=== PATIENT | female | born 1955 | race Caucasian/White ===

== ENCOUNTER → 2017-07-23 | Outpatient (CLI) | payer BC ==
--- NOTE | 2017-07-23 16:48 | WOMENS IMAGING REPORT ---
EXAM DESCRIPTION: BILAT SCREENING MAMMO W/CAD COMPLETED DATE/TIME: 07/23/2017 2:36 pm REASON FOR STUDY: ROUTINE SCREENING; Z12.31 Z12.31 ENCNTR SCREEN MAMMOGRAM FOR MALIGNANT NEOPLASM O F MILLY COMPARISON: September 2010 TECHNIQUE: Standard craniocaudal and mediolateral oblique views of each breast recorded using digita l acquisition. LIMITATIONS: None. FINDINGS: No masses, calcifications or architectural distortion. No areas of suspicion. Read with the assistance of CAD. .[facility] - R2 Cenova Version 1.3 .[facility] - R2 Cenova Version 1.3 .[facility] - R2 Cenova Version 2.4 .[facility] - R2 Cenova Version 2.4 .[facility] - R2 Electric Organ Checker Version 9.2 IMPRESSION: NORMAL MAMMOGRAM. BIRADS 1. BREAST DENSITY: c. The breasts are heterogeneously dense, which may obscure small masses. BIRAD: 1 NEGATIVE RECOMMENDATION: ROUTINE SCREENING COMMENT: The patient has been notified of the results by letter per SA requirements. Additional no tification policies are in place for contacting patient with suspicious or incomplete findings. Quality ID #[id number]: The [employer] recommends an annual screening mammogram for women aged 40 years or over. This facility utilizes a reminder system to ensure that all patients receive reminder letters, and/or direct phone calls for appointments. This includes reminders for routine scr eening mammograms, diagnostic mammograms, or other Breast Imaging Interventions when appropriate. Th is patient will be placed in the appropriate reminder system. The [employer] (ACR) has developed recommendations for screening MRI of the breast s in certain patient populations, to be used in conjunction with mammography. Breast MRI surveillanc e may be appropriate for women with more than 20% lifetime risk of developing breast cancer as deter mined by genetic testing, significant family history of the disease, or history of mantle radiation f or Hodgkins Disease. ACR Practice Guidelines 2008. TECHNICAL DOCUMENTATION: FINDING NUMBER: (1) ASSESSMENT: (1) JOB ID: [id number] [employer]- All Rights Reserved
== END ==
LOC: WI 13:00
PROVIDERS: ATTEND Physician Assistant
DX: Z12.31 Encounter for screening mammogram for malignant neoplasm of breast (principal)
CPT/HCPCS: 77067; G0202

== ENCOUNTER 2020-04-12 13:12 | Inpatient (IN) | payer SELFPAY ==
[2020-04-12 13:44] LABS: HEMOGLOBIN 18.5 g/dL (12.0-15.5); MEAN CORPUSCULAR HEMOGLOBIN 28.3 pg (27.0-33.4); MEAN CORPUSCULAR HGB CONC 31.9 g/dL (32.0-36.0); MEAN CORPUSCULAR VOLUME 89 fl (80-97); PLATELET COUNT 206 10^3/uL (150-450); RED BLOOD COUNT 6.55 10^6/uL (3.72-5.28); RED CELL DISTRIBUTION WIDTH 16.2 % (11.5-14.0); WHITE BLOOD COUNT 10.4 10^3/uL (4.0-10.5)
[2020-04-12 13:53] LABS: HEMATOCRIT 58.2 % (36.0-47.0)
[2020-04-12 14:03] LABS: ALBUMIN 4.4 g/dL (3.5-5.0); ALKALINE PHOSPHATASE 76 U/L (38-126); ANION GAP 10 (5-19); ASPARTATE AMINO TRANSFERASE 28 U/L (14-36); BILIRUBIN,TOTAL 0.8 mg/dL (0.2-1.3); BLOOD UREA NITROGEN 12 mg/dL (7-20); CALCIUM 8.9 mg/dL (8.4-10.2); CARBON DIOXIDE 35 mmol/L (22-30); CHLORIDE 88 mmol/L (98-107); GLUCOSE 205 mg/dL (75-110); POTASSIUM 4.4 mmol/L (3.6-5.0); TOTAL PROTEIN 7.6 g/dL (6.3-8.2)
[2020-04-12 14:14] LABS: ABSOLUTE LYMPHOCYTES# (MANUAL) 1.6 10^3/uL (0.5-4.7); BAND NEUTROPHILS % (MANUAL) 1 % (3-5); BASOPHILS % (MANUAL) 0 % (0-2); EOSINOPHILS % (MANUAL) 0 % (0-6); LYMPHOCYTES % (MANUAL) 15 % (13-45); MONOCYTES % (MANUAL) 10 % (3-13); PLATELET COMMENT ADEQUATE; SEGMENTED NEUTROPHILS % (MAN) 74 % (42-78); TOTAL CELLS COUNTED 100
[2020-04-12 14:16] LABS: ANISOCYTOSIS 1+; POLYCHROMASIA 1+; TOXIC VACUOLATION PRESENT
[2020-04-12 14:17] LABS: TEAR DROP CELLS SLIGHT
--- NOTE | 2020-04-12 14:30 | RADIOLOGY REPORT (SQ) ---
EXAM DESCRIPTION: CHEST SINGLE VIEW IMAGES COMPLETED DATE/TIME: 04/12/2020 2:16 pm REASON FOR STUDY: sob COMPARISON: 07/29/2016 EXAM PARAMETERS: NUMBER OF VIEWS: One view. TECHNIQUE: Single frontal radiographic view of the chest acquired. RADIATION DOSE: NA LIMITATIONS: None. FINDINGS: LUNGS AND PLEURA: No opacities, masses or pneumothorax. No pleural effusion. MEDIASTINUM AND HILAR STRUCTURES: No masses. Contour normal. HEART AND VASCULAR STRUCTURES: Heart normal in size. Normal vasculature. BONES: No acute findings. HARDWARE: None in the chest. OTHER: No other significant finding. IMPRESSION: NO ACUTE RADIOGRAPHIC FINDING IN THE CHEST. TECHNICAL DOCUMENTATION: JOB ID: [id number] 2010 [employer]- All Rights Reserved Reading location - IP/workstation name: [email or web address]
[2020-04-12 14:37] LABS: PARTIAL THROMBOPLASTIN TIME 32.1 SEC (23.5-35.8)
[2020-04-12 14:39] LABS: D-DIMER 0.75 ug/mL (0.00-0.50)
[2020-04-12 14:42] LABS: INTERNATIONAL RATION (INR) 0.96; PROTHROMBIN TIME 12.7 SEC (11.4-15.4)
--- NOTE | 2020-04-12 14:47 | ER Document Report ---
ED General - General Stated Complaint: SHORTNESS OF BREATH Time Seen by Provider: 04/12/20 13:21 Primary Care Provider: FRANCA LAMBERT PA-C [Primary Care Provider] - Follow up as needed TRAVEL OUTSIDE OF THE [place] IN LAST 30 DAYS: No - HPI Notes: Chief complaint: Cough and difficulty breathing History of present illness: 64-year-old female past smoker with past history of asthma says she has been "free from any problems" for a number of years. She became ill approximately 1 week ago with a nonproductive cough and what she perceived to be cold symptoms. Over the last several days she has had some sensation of low-grade temperature although she is not taken this. She says she is coughing up scant amounts of clear sputum. She denies travel. She denies any known exposure to COVID virus. She says she is been wearing a mask when in public. She denies chest pain. She denies any alteration of her sense of taste or smell. She denies any skin rashes. Patient says she has a past history of anaphylactic reaction to albuterol and cannot use nebulizers. EMS gave her 125 mg of Solu-Medrol IV during transport. She initially had a very low oxygen saturation around 58% on room air. They placed her on a nonrebreather and she was above 95% on arrival here. She feels much better on oxygen. She says she is never used oxygen at home. - Related Data Allergies/Adverse Reactions: albuterol [Albuterol] Allergy (Verified 04/12/20 19:02) Home Medications: metformin Past Medical History - General Information source: Patient, [facility] Records - Social History Smoking Status: Former Smoker Chew tobacco use (# tins/day): No Frequency of alcohol use: Rare Drug Abuse: None Family History: Reviewed & Not Pertinent - Past Medical History Cardiac Medical History: Reports: Hx Hypertension Endocrine Medical History: Reports: Hx Diabetes Mellitus Type 2 Past Surgical History: Reports: Hx Appendectomy, Hx Section - x2, Hx Cholecystectomy, Hx Genitourinary Surgery - oophrectomy, Hx Gynecologic Surgery - oophorectomy from ectopic but doesn't remember which, Hx Tonsillectomy - Immunizations Hx Diphtheria, Pertussis, Tetanus Vaccination: Yes Review of Systems - Review of Systems Notes: Constitutional: As per HPI. HENT: Negative for sore throat. Eyes: Negative for visual changes. Cardiovascular: Negative for chest pain. Respiratory: As per HPI. Gastrointestinal: Negative for abdominal pain, vomiting or diarrhea. Genitourinary: Negative for dysuria. Musculoskeletal: Negative for back pain. Skin: Negative for rash. Neurological: Negative for headaches, focal weakness or numbness. 10 point ROS negative except as marked above and in HPI. Physical Exam - Vital signs Vitals: Temp Pulse Resp BP Pulse Ox 99.3 F 101 H 21 H 165/95 H 59 L 04/12/20 13:13 04/12/20 13:13 04/12/20 13:13 04/12/20 13:13 04/12/20 13:13 Interpretation: Hypoxic - Notes Notes: GENERAL: Female patient approximately stated age who is breathing comfortably on a nonrebreather mask. She has a deep rattling cough. SKIN: Good turgor no rashes. HEAD: Normocephalic atraumatic. EYES: PERRLA. EOMI. Conjunctivae and sclerae clear. EARS: CANALS AND TMS CLEAR. NOSE: CLEAR. MOUTH: Moist mucosa. Good dentition. No stridor or edema. No drooling. NECK: Supple. No masses or thyromegaly. No adenopathy. Carotids 2+ without bruits. No JVD. BACK: Symmetrical without tenderness. CHEST: Diffuse expiratory wheezes bilaterally and scattered rhonchi. Respirations unlabored. Breath sounds symmetrical. HEART: Regular rhythm. No murmur gallop or rub. ABDOMEN: Soft, mildly obese, nontender without masses, organomegaly or rebound. Bowel sounds normally active. No bruits. GENITALIA: Deferred. EXTREMITIES: No edema. No calf tenderness. Cap refill less than 1.5 seconds. Dorsalis pedis and posterior tibial pulses 3+ and symmetrical. NEUROLOGICAL: GCS 15. Alert and oriented x3. Fluent speech. Cranial nerves II through XII intact. Sensorimotor and cerebellar normal. Normal tone. PSYCHIATRIC: Appropriate affect. Course - Re-evaluation Re-evalutation: 04/12/20 19:31 64-year-old female with history of past cigarette smoking and COPD as well as a past history of anaphylactic reaction to albuterol presents with several days history of bronchitic symptoms progressively worsening. She was severely hypoxemic during transport here via EMS and required 100% oxygen to get her saturation up above 90%. Her x-ray shows no focal infiltrates. She reported low-grade fever at home but was afebrile here and did not have any elevation of white count. COVID swab has been collected and result remains pending. Patient received IV Solu-Medrol during transport per EMS. Initial blood gas here showed pH of 7.22 with a PCO2 above 90. Patient was placed on BiPAP. Her pH is basically unchanged and her PCO2 is still in the high 90s with a PO2 of 145. She is now 50% oxygen. She is received IV Rocephin and will also receive IV Lasix. I have consulted with midlevel provider on for the critical care unit for admission. - Vital Signs Vital signs: Temp Pulse Resp BP Pulse Ox 99.3 F 101 H 16 148/92 H 98 04/12/20 13:13 04/12/20 13:13 04/12/20 19:01 04/12/20 19:01 04/12/20 19:01 - Laboratory Result Diagrams: 04/12/20 13:25 04/12/20 13:25 Laboratory results interpreted by me: 04/12/20 04/12/20 04/12/20 13:25 13:25 14:10 RBC 6.55 H Hgb 18.5 H Hct 58.2 H MCHC 31.9 L RDW 16.2 H Band Neutrophils % 1 L D-Dimer Carbonic Acid 3.25 H ABG pH 7.22 L ABG pCO2 108.0 H* ABG pO2 189.1 H ABG HCO3 43.5 H ABG Total CO2 46.8 H ABG O2 Saturation 98.9 H Sodium 133.0 L Chloride 88 L Carbon Dioxide 35 H Creatinine 0.45 L Glucose 205 H Urine Protein Urine Blood 04/12/20 04/12/20 04/12/20 14:20 14:35 18:25 RBC Hgb Hct MCHC RDW Band Neutrophils % D-Dimer 0.75 H Carbonic Acid 2.96 H ABG pH 7.20 L* ABG pCO2 98.5 H* ABG pO2 ABG HCO3 38.0 H ABG Total CO2 41.0 H ABG O2 Saturation Sodium Chloride Carbon Dioxide Creatinine Glucose Urine Protein >=500 H Urine Blood SMALL H - Diagnostic Test Radiology reviewed: Reports reviewed - Radiologist reports no acute findings on portable chest x-ray. - EKG Interpretation by Me Additional EKG results interpreted by me: 04/12/20 14:48 Twelve-lead EKG from 1404 hrs. is reviewed contemporaneously by me showing normal sinus rhythm with a rate of 96 and a QRS axis of 222 degrees. She shows changes of left atrial abnormality and diffuse low voltage suggestive of COPD. There are no acute ST/T wave changes present. Intervals are normal. There is no old EKG for direct comparison. Indication for current study: Dyspnea. Critical Care Note - Critical Care Note Total time excluding time spent on procedures (mins): 65 - Respiratory failure with BiPAP Discharge - Discharge Clinical Impression: Acute on chronic respiratory failure, COPD exacerbation Condition: Critical Disposition: ADMITTED INPATIENT Admitting Provider: Odin (Merchandise Clerk) Unit Admitted: ICU Referrals: FRANCA LAMBERT PA-C [Primary Care Provider] - Follow up as needed
[2020-04-12 14:55] LABS: APPEARANCE,URINE SLIGHTLY-CLOUDY; BILIRUBIN,URINE NEGATIVE (NEGATIVE); COLOR,URINE AMBER; GLUCOSE, URINE NEGATIVE (NEGATIVE); KETONES,URINE NEGATIVE (NEGATIVE); LEUKOCYTE ESTERASE,URINE NEGATIVE (NEGATIVE); NITRITE,URINE NEGATIVE (NEGATIVE); PROTEIN,URINE >=500 mg/dL (NEGATIVE); URINE SPECIFIC GRAVITY 1.024; UROBILINOGEN,URINE NEGATIVE mg/dL (<2.0)
[2020-04-12 16:31] LABS: ARTERIAL BLOOD BASE EXCESS 9.1 mmol/L; ARTERIAL BLOOD H2CO3 3.25 mmol/L (1.05-1.35); ARTERIAL BLOOD HCO3 43.5 mmol/L (20-24); ARTERIAL BLOOD O2 SATURATION 98.9 % (94-98); ARTERIAL BLOOD PH 7.22 (7.35-7.45); ARTERIAL BLOOD PO2 189.1 mmHg (80-100); ARTERIAL BLOOD TOTAL CO2 46.8 mmol/L (21-25)
[2020-04-12 16:35] LABS: ARTERIAL BLOOD FIO2 12L
--- NOTE | 2020-04-12 18:27 | EKG REPORT ---
SEVERITY:- ABNORMAL ECG - SINUS RHYTHM PROBABLE LEFT ATRIAL ABNORMALITY LOW VOLTAGE WITH RIGHT AXIS DEVIATION CONSIDER ANTERIOR INFARCT : Confirmed by: Khoi Ignacio MD 12-Apr-2020 18:26:41
[2020-04-12 18:43] LABS: ARTERIAL BLOOD BASE EXCESS 4.6 mmol/L; ARTERIAL BLOOD H2CO3 2.96 mmol/L (1.05-1.35); ARTERIAL BLOOD O2 SATURATION 94.1 % (94-98); ARTERIAL BLOOD PO2 88.3 mmHg (80-100)
[2020-04-12 18:44] LABS: ARTERIAL BLOOD FIO2 50%
[2020-04-12 18:45] LABS: ARTERIAL BLOOD PCO2 98.5 mmHg (35-45)
[2020-04-12] MEDS ORDERED: CEFTRIAXONE INJ 1000 MG VIAL IV ONE (19:17)
[2020-04-12] MEDS ORDERED: IPRATROPIUM BROMIDE 0.02% NEB 0.5 MG/2.5 ML AMPUL NEB PRN (20:20)
[2020-04-12] MEDS ORDERED: GLUCAGON,HUMAN RECOMB 1 MG INJ IM PRN (20:21)
[2020-04-12] MEDS ORDERED: DEXTROSE 40% GEL 15 GM TUBE PO PRN ×2 (20:21)
[2020-04-12] MEDS ORDERED: ONDANSETRON HCL INJ/PF 4 MG/2 ML SDV IV PRN (20:21)
[2020-04-12] MEDS ORDERED: ACETAMINOPHEN 325 MG TABLET PO PRN (20:21)
[2020-04-12] MEDS ORDERED: DEXTROSE 50%-WATER 25 GM/50 ML DISP.SYRIN IV PRN ×2 (20:21)
--- NOTE | 2020-04-12 20:49 | PDOC H&P ---
History of Present Illness Admission Date/PCP: 04/12/20 19:35 FRANCA LAMBERT PA-C History of Present Illness: BIRGIT INMAN is a 64 year old female with a history of hypertension and diab etes and remote history of smoking and asthma who presents with a one-week history of cough and shortness of breath. She is not had any fevers. She is been taking Mucinex to try to make the cough more productive but has not gotten much better. She came to the ER and was found to be pretty hypoxic. She was placed first on the nasal cannula and then on nonrebreather and then on BiPAP. She was taken off BiPAP at one point but back on 4 L nasal cannula and her saturations were 88 to 91%. A blood gas was checked and while her oxygenation was fine on blood gas, she was found to have a substantially elevated PCO2, greater than 100. pH was down to 7.2. Surprisingly, she had no mental status changes. Chest x-ray was negative. She said that the last time she did an albuterol treatment was in a [employer] office and it wound up closing up her airways and she had to go to the hospital. Past Medical History Cardiac Medical History: Reports: Hypertension Endocrine Medical History: Reports: Diabetes Mellitus Type 2 Past Surgical History Past Surgical History: Reports: Appendectomy, Section - x2, Cholecystectomy, Tonsillectomy Social History Smoking Status: Former Smoker Electronic Cigarette use?: No Family History Family History: Reviewed & Not Pertinent, DM, Hyperlipidemia, Hypertension Parental Family History Reviewed: Yes Children Family History Reviewed: Yes Sibling(s) Family History Reviewed.: Yes Medication/Allergy Home Medications: Amlodipine Besylate [Norvasc 10 mg Tablet] 10 mg PO DAILY 04/12/20 Atorvastatin Calcium [Lipitor 40 mg Tablet] 40 mg PO QHS 04/12/20 Metformin HCl [Glucophage 500 mg Tablet] 1,000 mg PO BIDACBS 04/12/20 Telmisartan/Hydrochlorothiazid [Telmisartan-Hctz 40-12.5 mg Tb] 1 tab PO DAILY 04/12/20 Allergies/Adverse Reactions: albuterol [Albuterol] Allergy (Verified 04/12/20 19:02) Review of Systems All systems: reviewed and no additional remarkable complaints except as stated - All systems were reviewed and were negative except as noted in the HPI Physical Exam Vital Signs: Temp Pulse Resp BP Pulse Ox 99.3 F 101 H 18 157/106 H 97 04/12/20 13:13 04/12/20 13:13 04/12/20 20:00 04/12/20 20:00 04/12/20 20:00 Intake & Output 04/11/20 04/12/20 04/13/20 06:59 06:59 06:59 Weight 93.2 kg General appearance: PRESENT: no acute distress, cooperative, disheveled, morbidly obese Head exam: PRESENT: atraumatic, normocephalic Eye exam: PRESENT: EOMI, PERRLA. ABSENT: conjunctival injection, nystagmus, scleral icterus Ear exam: PRESENT: normal external ear exam Mouth exam: PRESENT: moist, neck supple Throat exam: ABSENT: post pharyngeal erythema Neck exam: PRESENT: full ROM. ABSENT: carotid bruit, JVD, lymphadenopathy, meningismus, tenderness, thyromegaly Respiratory exam: PRESENT: prolonged expiratory phas, symmetrical, unlabored, wheezes. ABSENT: accessory muscle use, chest wall tenderness, crackles, rhonchi, tachypnea Cardiovascular exam: PRESENT: RRR, +S1, +S2 Pulses: PRESENT: normal carotid pulses Vascular exam: PRESENT: normal capillary refill GI/Abdominal exam: PRESENT: normal bowel sounds, soft. ABSENT: distended, guarding, rebound, tenderness Extremities exam: ABSENT: clubbing, pedal edema Musculoskeletal exam: PRESENT: normal inspection. ABSENT: deformity Neurological exam: PRESENT: alert, awake, oriented to person, oriented to place, oriented to situation, CN II-XII grossly intact. ABSENT: motor sensory deficit Psychiatric exam: PRESENT: appropriate affect, normal mood Skin exam: PRESENT: dry, warm Results Laboratory Results: 04/12/20 13:25 04/12/20 13:25 04/12/20 04/12/20 04/12/20 13:25 13:25 13:25 WBC 10.4 RBC 6.55 H Hgb 18.5 H Hct 58.2 H MCV 89 MCH 28.3 MCHC 31.9 L RDW 16.2 H Plt Count 206 Seg Neutrophils % Not Reportable Carbonic Acid HCO3/H2CO3 Ratio ABG pH ABG pCO2 ABG pO2 ABG HCO3 ABG O2 Saturation ABG Base Excess FiO2 Sodium 133.0 L Potassium 4.4 Chloride 88 L Carbon Dioxide 35 H Anion Gap 10 BUN 12 Creatinine 0.45 L Est GFR ( Amer) > 60 Glucose 205 H Lactic Acid 1.6 Calcium 8.9 Total Bilirubin 0.8 AST 28 Alkaline Phosphatase 76 Total Protein 7.6 Albumin 4.4 Urine Color Urine Appearance Urine pH Ur Specific [place] Urine Protein Urine Glucose (UA) Urine Ketones Urine Blood Urine Nitrite Ur Leukocyte Esterase Urine WBC (Auto) Urine RBC (Auto) 04/12/20 04/12/20 04/12/20 14:10 14:35 16:40 WBC RBC Hgb Hct MCV MCH MCHC RDW Plt Count Seg Neutrophils % Carbonic Acid 3.25 H HCO3/H2CO3 Ratio 13:1 ABG pH 7.22 L ABG pCO2 108.0 H* ABG pO2 189.1 H ABG HCO3 43.5 H ABG O2 Saturation 98.9 H ABG Base Excess 9.1 FiO2 12L Sodium Potassium Chloride Carbon Dioxide Anion Gap BUN Creatinine Est GFR ( Amer) Glucose Lactic Acid 1.0 Calcium Total Bilirubin AST Alkaline Phosphatase Total Protein Albumin Urine Color JEB Urine Appearance SLIGHTLY-CLOUDY Urine pH 5.0 Ur Specific [place] 1.024 Urine Protein >=500 H Urine Glucose (UA) NEGATIVE Urine Ketones NEGATIVE Urine Blood SMALL H Urine Nitrite NEGATIVE Ur Leukocyte Esterase NEGATIVE Urine WBC (Auto) 2 Urine RBC (Auto) 1 04/12/20 18:25 WBC RBC Hgb Hct MCV MCH MCHC RDW Plt Count Seg Neutrophils % Carbonic Acid 2.96 H HCO3/H2CO3 Ratio 12:1 ABG pH 7.20 L* ABG pCO2 98.5 H* ABG pO2 88.3 ABG HCO3 38.0 H ABG O2 Saturation 94.1 ABG Base Excess 4.6 FiO2 50% Sodium Potassium Chloride Carbon Dioxide Anion Gap BUN Creatinine Est GFR ( Amer) Glucose Lactic Acid Calcium Total Bilirubin AST Alkaline Phosphatase Total Protein Albumin Urine Color Urine Appearance Urine pH Ur Specific [place]ime [place] Urine Protein Urine Glucose (UA) Urine Ketones Urine Blood Urine Nitrite Ur Leukocyte Esterase Urine WBC (Auto) Urine RBC (Auto) 04/12/20 13:25 Troponin I 0.026 Impressions: Chest X-Ray 04/12/20 00:00 IMPRESSION: NO ACUTE RADIOGRAPHIC FINDING IN THE CHEST. Assessment and Plan - Diagnosis (1) Acute respiratory failure with hypoxia and hypercapnia Is this a current diagnosis for this admission?: Yes Plan: She has bronchospasm as well. We are treating her with BiPAP now to try to help her get rid of some of the excess CO2. IV Solu-Medrol for bronchospasm. If the nebulizer treatment as needed, will use ipratropium without albuterol. (2) Obesity Qualifiers: Obesity type: due to excess calories Obesity classification: adult class 1 (BMI 30 - 34.9) Serious obesity comorbidity presence: with serious comorbidity Body mass index: BMI 30.0-30.9 Qualified Code(s): E66.09 - Other obesity due to excess calories; Z68.30 - Body mass index (BMI) 30.0-30.9, adult Is this a current diagnosis for this admission?: Yes Plan: Strongly encourage lifestyle modification (3) Hypertension Qualifiers: Hypertension type: essential hypertension Qualified Code(s): I10 - Ess ential (primary) hypertension Is this a current diagnosis for this admission?: Yes Plan: We will continue her lisinopril (4) Non-insulin dependent diabetes mellitus Is this a current diagnosis for this admission?: Yes Plan: We will continue metformin, diabetic diet, will add insulin sliding scale because the steroids are likely going to increase her blood sugars - Time Time Spent with patient: 35 or more minutes - Inpatient Certification Based on my medical assessment, after consideration of the patient's comorbidities, presenting symptoms, or acuity I expect that the services needed warrant INPATIENT care.: Yes I certify that my determination is in accordance with my understanding of Medicare's requirements for reasonable and necessary INPATIENT services [42 CFR 412.3e].: Yes Medical Necessity: Significant Comorbidiites Make Outpatient Treatment Too Risky, Need Close Monitoring Due to Risk of Patient Decompensation, Need For Continuous Telemetry Monitoring, Need for Nebulizer Therapy and Monitoring of Response, Risk of Complication if Not Cared For in Hospital
[2020-04-12] MEDS ORDERED: DOXYCYCLINE HYCLATE 100 MG TABLET PO SCH (22:00)
[2020-04-12] MEDS: METHYLPREDNISOLONE INJ 40 MG/1 ML SDV IV SCH (23:53)
[2020-04-12] MEDS: HEPARIN SOD (PORCINE) 5,000 UNIT/ML 1 ML VIAL SUBCUT SCH (23:53)
[2020-04-12] MEDS: INSULIN LISPRO 100 UNIT/ML 3 ML VIAL SUBCUT SCH (23:54)
[2020-04-13 01:18] LABS: ARTERIAL BLOOD BASE EXCESS 5.7 mmol/L; ARTERIAL BLOOD FIO2 40%; ARTERIAL BLOOD H2CO3 2.68 mmol/L (1.05-1.35); ARTERIAL BLOOD HCO3 37.6 mmol/L (20-24); ARTERIAL BLOOD O2 SATURATION 93.3 % (94-98); ARTERIAL BLOOD PH 7.24 (7.35-7.45); ARTERIAL BLOOD PO2 80.7 mmHg (80-100); ARTERIAL BLOOD TOTAL CO2 40.4 mmol/L (21-25)
[2020-04-13 01:19] LABS: ARTERIAL BLOOD PCO2 89.2 mmHg (35-45)
[2020-04-13] MEDS ORDERED: DOXYCYCLINE HYCLATE 100 MG TABLET PO ONE (01:28)
[2020-04-13] MEDS: HEPARIN SOD (PORCINE) 5,000 UNIT/ML 1 ML VIAL SUBCUT SCH ×3 (05:44→22:50)
[2020-04-13] MEDS: METHYLPREDNISOLONE INJ 40 MG/1 ML SDV IV SCH ×3 (05:44→22:51)
[2020-04-13 05:48] LABS: ABSOLUTE LYMPHOCYTES (AUTO) 0.9 10^3/uL (0.5-4.7); ABSOLUTE MONOCYTES (AUTO) 0.2 10^3/uL (0.1-1.4); ABSOLUTE NEUT (AUTO) 6.1 10^3/uL (1.7-8.2); BASOPHILS % (AUTO) 0.3 % (0-2); HEMATOCRIT 54.3 % (36.0-47.0); HEMOGLOBIN 17.5 g/dL (12.0-15.5); LYMPHOCYTES % (AUTO) 12.5 % (13-45); MEAN CORPUSCULAR HEMOGLOBIN 28.7 pg (27.0-33.4); MEAN CORPUSCULAR HGB CONC 32.2 g/dL (32.0-36.0); MEAN CORPUSCULAR VOLUME 89 fl (80-97); MONOCYTES % (AUTO) 2.6 % (3-13); PLATELET COUNT 181 10^3/uL (150-450); RED BLOOD COUNT 6.09 10^6/uL (3.72-5.28); RED CELL DISTRIBUTION WIDTH 16.4 % (11.5-14.0); SEGMENTED NEUTROPHILS % (AUTO) 84.6 % (42-78); TOTAL CELLS COUNTED % (AUTO) 100 %; WHITE BLOOD COUNT 7.2 10^3/uL (4.0-10.5)
[2020-04-13 06:03] LABS: ANION GAP 7 (5-19); BLOOD UREA NITROGEN 18 mg/dL (7-20); CALCIUM 9.1 mg/dL (8.4-10.2); CARBON DIOXIDE 37 mmol/L (22-30); CHLORIDE 89 mmol/L (98-107); GLUCOSE 225 mg/dL (75-110); POTASSIUM 4.9 mmol/L (3.6-5.0)
[2020-04-13] MEDS: INSULIN LISPRO 100 UNIT/ML 3 ML VIAL SUBCUT SCH ×4 (07:56→22:50)
[2020-04-13] MEDS ORDERED: HYDROCHLOROTHIAZIDE 12.5 MG TABLET PO ONE (08:14)
[2020-04-13] MEDS: METFORMIN HCL 500 MG TABLET PO SCH ×2 (08:38→16:28)
[2020-04-13] MEDS: LOSARTAN POTASSIUM 50 MG TABLET PO SCH (10:30)
[2020-04-13] MEDS: AMLODIPINE BESYLATE 10 MG TABLET PO SCH (10:31)
[2020-04-13] MEDS: LEVOFLOXACIN 500 MG TABLET PO SCH (10:31)
[2020-04-13 12:36] LABS: ARTERIAL BLOOD BASE EXCESS 6.7 mmol/L; ARTERIAL BLOOD FIO2 45%; ARTERIAL BLOOD H2CO3 2.64 mmol/L (1.05-1.35); ARTERIAL BLOOD HCO3 38.4 mmol/L (20-24); ARTERIAL BLOOD PH 7.26 (7.35-7.45); ARTERIAL BLOOD PO2 129.5 mmHg (80-100); ARTERIAL BLOOD TOTAL CO2 41.1 mmol/L (21-25)
[2020-04-13 12:37] LABS: ARTERIAL BLOOD PCO2 87.7 mmHg (35-45)
--- NOTE | 2020-04-13 16:40 | PDOC PROGRESS REPORT ---
Subjective Progress Note for:: 04/13/20 Subjective:: Patient states he has no history of COPD at least it has never been diagnosed but she does have history of asthma. She also has a smoking history and smoked for about 20 years but quit a while ago. At this time she feels better in terms of her breathing. Reason For Visit: ACUTE HYPERCAPNEIC RESPIRATORY FAILURE Physical Exam Vital Signs: Temp Pulse Resp BP Pulse Ox 97.8 F 85 16 144/90 H 92 04/13/20 11:27 04/13/20 15:39 04/13/20 15:39 04/13/20 11:27 04/13/20 15:39 Intake & Output 04/12/20 04/13/20 04/14/20 06:59 06:59 06:59 Intake Total 371 702 Output Total 300 600 Balance 71 102 Weight 92.5 kg General appearance: PRESENT: no acute distress, cooperative, obese Neck exam: ABSENT: JVD Respiratory exam: PRESENT: prolonged expiratory phas, symmetrical, unlabored, wheezes. ABSENT: tachypnea Cardiovascular exam: PRESENT: RRR, +S1, +S2. ABSENT: tachycardia GI/Abdominal exam: PRESENT: normal bowel sounds, soft. ABSENT: firm, guarding, rebound, rigid, tenderness Neurological exam: PRESENT: alert, awake, oriented to person, oriented to place, oriented to time, oriented to situation, other - Awake and talking in full sentences. Results Laboratory Results: 04/13/20 05:07 04/13/20 05:07 04/12/20 04/12/20 04/12/20 14:10 16:40 18:25 WBC RBC Hgb Hct MCV MCH MCHC RDW Plt Count Seg Neutrophils % Carbonic Acid 3.25 H 2.96 H HCO3/H2CO3 Ratio 13:1 12:1 ABG pH 7.22 L 7.20 L* ABG pCO2 108.0 H* 98.5 H* ABG pO2 189.1 H 88.3 ABG HCO3 43.5 H 38.0 H ABG O2 Saturation 98.9 H 94.1 ABG Base Excess 9.1 4.6 FiO2 12L 50% Sodium Potassium Chloride Carbon Dioxide Anion Gap BUN Creatinine Est GFR ( Amer) Glucose Lactic Acid 1.0 Calcium Magnesium 04/13/20 04/13/20 04/13/20 01:06 05:07 05:07 WBC 7.2 RBC 6.09 H Hgb 17.5 H Hct 54.3 H MCV 89 MCH 28.7 MCHC 32.2 RDW 16.4 H Plt Count 181 Seg Neutrophils % 84.6 H Carbonic Acid 2.68 H HCO3/H2CO3 Ratio 14:1 ABG pH 7.24 L ABG pCO2 89.2 H* ABG pO2 80.7 ABG HCO3 37.6 H ABG O2 Saturation 93.3 L ABG Base Excess 5.7 FiO2 40% Sodium 133.0 L Potassium 4.9 Chloride 89 L Carbon Dioxide 37 H Anion Gap 7 BUN 18 Creatinine 0.51 L Est GFR ( Amer) > 60 Glucose 225 H Lactic Acid Calcium 9.1 Magnesium 2.0 04/13/20 11:13 WBC RBC Hgb Hct MCV MCH MCHC RDW Plt Count Seg Neutrophils % Carbonic Acid 2.64 H HCO3/H2CO3 Ratio 14:1 ABG pH 7.26 L ABG pCO2 87.7 H* ABG pO2 129.5 H ABG HCO3 38.4 H ABG O2 Saturation 98.0 ABG Base Excess 6.7 FiO2 45% Sodium Potassium Chloride Carbon Dioxide Anion Gap BUN Creatinine Est GFR ( Amer) Glucose Lactic Acid Calcium Magnesium 04/12/20 13:25 Troponin I 0.026 Impressions: Chest X-Ray 04/12/20 00:00 IMPRESSION: NO ACUTE RADIOGRAPHIC FINDING IN THE CHEST. Assessment and Plan - Diagnosis (1) Acute respiratory failure with hypoxia and hypercapnia Is this a current diagnosis for this admission?: Yes Plan: Patient is significantly hypercapnic with respiratory acidosis pH of 7.26 Patient has history of asthma. She also does have smoking history. She likely has asthma/COPD exacerbation and has significant wheezing on exam. Continue BiPAP. Repeat ABG does not show much improvement. I have adjusted IPAP/EPAP settings. Will have patient sleep with the BiPAP. I suspect she will eventually need to be sent home on nocturnal BiPAP and have gotten discharge planning involved early. I suspect patient is likely had chronic hypercapnic respiratory failure as she seems to be maintaining extremely well despite such very high PCO2 level. (2) Asthma with COPD with exacerbation Is this a current diagnosis for this admission?: Yes Plan: I suspect patient has COPD in addition to her known history of asthma. She does have extensive smoking history of about 20 pack years though she has quit a long time ago. She has not had a PFT done anytime recent. It will not be efficient to get a PFTs done at this time of acute exacerbation to determine if COPD is playing a role here. I will check a CT chest without contrast to see if emphysema I reviewed chest x-ray which shows no evidence of pneumonia. Frequent nebulizer treatments every 4 hours. IV Solu-Medrol. Levaquin. (3) Diabetes mellitus type 2 in obese Is this a current diagnosis for this admission?: Yes Plan: Continue Metformin. Sliding scale insulin coverage as well. (4) Hypertension Qualifiers: Hypertension type: essential hypertension Qualified Code(s): I10 - Essential (primary) hypertension Is this a current diagnosis for this admission?: Yes Plan: Continue patient's antihypertensives. (5) Obesity Qualifiers: Obesity type: due to excess calories Obesity classification: adult class 1 (BMI 30 - 34.9) Serious obesity comorbidity presence: with serious comorbidity Body mass index: BMI 30.0-30.9 Qualified Code(s): E66.09 - Other obesity due to excess calories; Z68.30 - Body mass index (BMI) 30.0-30.9, adult Is this a current diagnosis for this admission?: Yes Plan: Strongly encourage lifestyle modification - Time Time Spent with patient: 15-24 minutes Anticipated discharge: Home Within: within 72 hours
--- NOTE | 2020-04-13 17:53 | RADIOLOGY REPORT (SQ) ---
EXAM DESCRIPTION: CT CHEST WITHOUT IMAGES COMPLETED DATE/TIME: 04/13/2020 4:49 pm REASON FOR STUDY: hypoxia. hypercapnia. possible emphysema COMPARISON: 2009 TECHNIQUE: CT scan performed of the chest without intravenous contrast. Images reviewed with lung, soft tissue and bone windows. Reconstructed coronal and sagittal MPR images reviewed. All images st ored on PACS. All CT scanners at this facility use dose modulation, iterative reconstruction, and/or weight based d osing when appropriate to reduce radiation dose to as low as reasonably achievable (ALARA). [facility]: Dose Right [facility]: CareDose [facility]: Dose Right [facility]: Teradose 4D [facility]: Smart Siterra RADIATION DOSE: CT Rad equipment meets quality standard of care and radiation dose reduction techniq ues were employed. CTDIvol: 17.3 mGy. DLP: 640 mGy-cm. mGy. LIMITATIONS: No technical limitations. FINDINGS: LUNGS AND PLEURA: No masses, infiltrates, or pneumothorax. No pleural effusions or pleura l calcifications. HILAR AND MEDIASTINAL STRUCTURES: No identified masses or abnormal nodes. No obvious aneurysm. HEART AND VASCULAR STRUCTURES: No aneurysm. No pericardial effusion. UPPER ABDOMEN: No significant findings. Limited exam. THYROID AND OTHER SOFT TISSUES: No masses. No adenopathy. BONES: No significant finding. HARDWARE: None in the chest. OTHER: No other significant findings. IMPRESSION: NO SIGNIFICANT FINDING ON NON-CONTRASTED CHEST CT. TECHNICAL DOCUMENTATION: JOB ID: [id number] Quality ID # [id number]: Final reports with documentation of one or more dose reduction techniques (e.g., Au tomated exposure control, adjustment of the mA and/or kV according to patient size, use of iterative reconstruction technique) 2010 [employer]- All Rights Reserved Reading location - IP/workstation name: [email or web address]
[2020-04-13] MEDS ORDERED: IPRATROPIUM/ALBUTEROL 0.5-2.5 MG/3 ML AMPUL NEB SCH (20:00)
[2020-04-13] MEDS: IPRATROPIUM BROMIDE 0.02% NEB 0.5 MG/2.5 ML AMPUL NEB SCH (20:04)
[2020-04-13] MEDS: LEVALBUTEROL HCL NEB 1.25 MG/3 ML AMPUL NEB SCH (20:05)
[2020-04-13] MEDS: ATORVASTATIN CALCIUM 40 MG TABLET PO SCH (22:50)
[2020-04-14] MEDS: LEVALBUTEROL HCL NEB 1.25 MG/3 ML AMPUL NEB SCH (01:57)
[2020-04-14] MEDS: IPRATROPIUM BROMIDE 0.02% NEB 0.5 MG/2.5 ML AMPUL NEB SCH (01:57)
[2020-04-14] MEDS: HEPARIN SOD (PORCINE) 5,000 UNIT/ML 1 ML VIAL SUBCUT SCH ×3 (05:35→22:05)
[2020-04-14] MEDS: METHYLPREDNISOLONE INJ 40 MG/1 ML SDV IV SCH ×3 (05:36→22:05)
[2020-04-14 05:51] LABS: ABSOLUTE LYMPHOCYTES (AUTO) 0.9 10^3/uL (0.5-4.7); ABSOLUTE MONOCYTES (AUTO) 0.3 10^3/uL (0.1-1.4); BASOPHILS % (AUTO) 0.2 % (0-2); HEMATOCRIT 54.1 % (36.0-47.0); HEMOGLOBIN 17.2 g/dL (12.0-15.5); LYMPHOCYTES % (AUTO) 10.8 % (13-45); MEAN CORPUSCULAR HEMOGLOBIN 28.3 pg (27.0-33.4); MEAN CORPUSCULAR HGB CONC 31.7 g/dL (32.0-36.0); MEAN CORPUSCULAR VOLUME 89 fl (80-97); MONOCYTES % (AUTO) 3.4 % (3-13); PLATELET COUNT 193 10^3/uL (150-450); RED BLOOD COUNT 6.05 10^6/uL (3.72-5.28); RED CELL DISTRIBUTION WIDTH 16.4 % (11.5-14.0); SEGMENTED NEUTROPHILS % (AUTO) 85.6 % (42-78); TOTAL CELLS COUNTED % (AUTO) 100 %; WHITE BLOOD COUNT 8.1 10^3/uL (4.0-10.5)
[2020-04-14 06:09] LABS: ANION GAP 7 (5-19); BLOOD UREA NITROGEN 26 mg/dL (7-20); CALCIUM 9.4 mg/dL (8.4-10.2); CARBON DIOXIDE 39 mmol/L (22-30); CHLORIDE 87 mmol/L (98-107); GLUCOSE 239 mg/dL (75-110); POTASSIUM 5.1 mmol/L (3.6-5.0)
[2020-04-14] MEDS: METFORMIN HCL 500 MG TABLET PO SCH ×2 (08:18→17:23)
[2020-04-14] MEDS: HYDROCHLOROTHIAZIDE 12.5 MG TABLET PO SCH (08:18)
[2020-04-14] MEDS: INSULIN LISPRO 100 UNIT/ML 3 ML VIAL SUBCUT SCH ×4 (08:18→22:05)
[2020-04-14] MEDS: IPRATROPIUM BROMIDE 0.02% NEB 0.5 MG/2.5 ML AMPUL NEB PRN ×3 (08:40→22:34)
[2020-04-14 08:47] LABS: ARTERIAL BLOOD H2CO3 2.98 mmol/L (1.05-1.35); ARTERIAL BLOOD O2 SATURATION 94.3 % (94-98); ARTERIAL BLOOD PH 7.28 (7.35-7.45); ARTERIAL BLOOD PO2 84.3 mmHg (80-100)
[2020-04-14 08:48] LABS: ARTERIAL BLOOD FIO2 5L
[2020-04-14 08:49] LABS: ARTERIAL BLOOD PCO2 99.1 mmHg (35-45)
[2020-04-14] MEDS: AMLODIPINE BESYLATE 10 MG TABLET PO SCH (11:01)
[2020-04-14] MEDS: LOSARTAN POTASSIUM 50 MG TABLET PO SCH (11:01)
[2020-04-14] MEDS: LEVOFLOXACIN 500 MG TABLET PO SCH (11:01)
[2020-04-14 11:04] LABS: ARTERIAL BLOOD BASE EXCESS 9.6 mmol/L; ARTERIAL BLOOD H2CO3 2.59 mmol/L (1.05-1.35); ARTERIAL BLOOD O2 SATURATION 95.6 % (94-98); ARTERIAL BLOOD PO2 90.6 mmHg (80-100); ARTERIAL BLOOD TOTAL CO2 43.6 mmol/L (21-25)
[2020-04-14 11:05] LABS: ARTERIAL BLOOD FIO2 40%
--- NOTE | 2020-04-14 16:09 | PDOC PROGRESS REPORT ---
Subjective Progress Note for:: 04/14/20 Subjective:: Patient slept with BiPAP for a few hours last night. This morning, her PCO2 is higher but she is still mentating very well. She states her breathing feels better. States BiPAP was blamed so much pressure in her face but she is willing to attempt retrying it. Reason For Visit: ACUTE HYPERCAPNEIC RESPIRATORY FAILURE Physical Exam Vital Signs: Temp Pulse Resp BP Pulse Ox 98.1 F 89 15 136/86 H 92 04/14/20 12:12 04/14/20 14:00 04/14/20 13:46 04/14/20 12:12 04/14/20 13:46 Intake & Output 04/13/20 04/14/20 04/15/20 06:59 06:59 06:59 Intake Total 371 1592 Output Total 300 2400 Balance 71 -808 Weight 92.5 kg 93.4 kg General appearance: PRESENT: no acute distress, cooperative Neck exam: ABSENT: JVD Respiratory exam: PRESENT: symmetrical, unlabored, wheezes - Improved from yesterday. ABSENT: accessory muscle use, retraction, tachypnea Cardiovascular exam: PRESENT: RRR, +S1, +S2. ABSENT: tachycardia GI/Abdominal exam: PRESENT: soft. ABSENT: rebound, rigid, tenderness Neurological exam: PRESENT: alert, awake, oriented to person, oriented to place, oriented to time, oriented to situation, other - Conversing appropriately. Results Laboratory Results: 04/14/20 05:05 04/14/20 05:05 04/14/20 04/14/20 04/14/20 05:05 05:05 08:28 WBC 8.1 RBC 6.05 H Hgb 17.2 H Hct 54.1 H MCV 89 MCH 28.3 MCHC 31.7 L RDW 16.4 H Plt Count 193 Seg Neutrophils % 85.6 H Carbonic Acid 2.98 H HCO3/H2CO3 Ratio 15:1 ABG pH 7.28 L ABG pCO2 99.1 H* ABG pO2 84.3 ABG HCO3 45.0 H ABG O2 Saturation 94.3 ABG Base Excess 12.0 FiO2 5L Sodium 132.6 L Potassium 5.1 H Chloride 87 L Carbon Dioxide 39 H Anion Gap 7 BUN 26 H Creatinine 0.48 L Est GFR ( Amer) > 60 Glucose 239 H Calcium 9.4 04/14/20 10:48 WBC RBC Hgb Hct MCV MCH MCHC RDW Plt Count Seg Neutrophils % Carbonic Acid 2.59 H HCO3/H2CO3 Ratio 15:1 ABG pH 7.30 L ABG pCO2 86.0 H* ABG pO2 90.6 ABG HCO3 41.0 H ABG O2 Saturation 95.6 ABG Base Excess 9.6 FiO2 40% Sodium Potassium Chloride Carbon Dioxide Anion Gap BUN Creatinine Est GFR ( Amer) Glucose Calcium 04/12/20 13:25 Troponin I 0.026 Impressions: Chest X-Ray 04/12/20 00:00 IMPRESSION: NO ACUTE RADIOGRAPHIC FINDING IN THE CHEST. Chest CT 04/13/20 00:00 IMPRESSION: NO SIGNIFICANT FINDING ON NON-CONTRASTED CHEST CT. Assessment and Plan - Diagnosis (1) Acute respiratory failure with hypoxia and hypercapnia Is this a current diagnosis for this admission?: Yes Plan: Patient is significantly hypercapnic [acute on chronic] with respiratory acidosis. Attempting to compensate metabolically. Patient has history of asthma. She also does have smoking history. She likely has asthma/COPD exacerbation and has significant wheezing on exam. I suspect patient has had chronic hypercapnic respiratory failure as she seems to be mentating extremely well despite such very high PCO2 level after sleeping with the BiPAP. I have placed patient back on bi-Pap 19/05 and checked an ABG shortly after which shows improvement of her PCO2 to 86 and pH to 7.30. I have consulted pulmonology Dr. Choi who recommends having patient stay on BiPAP throughout the entire day and rechecking her blood gas tomorrow. (2) Asthma with COPD with exacerbation Is this a current diagnosis for this admission?: Yes Plan: I suspect patient has COPD in addition to her known history of asthma. She does have extensive smoking history of about 20 pack years though she has quit a long time ago. She has not had a PFT done anytime recent. It will not be efficient to get a PFTs done at this time of acute exacerbation to determine if COPD is playing a role here. Chest CT does not show thoroughly emphysematous lungs. Frequent nebulizer treatments every 4 hours. IV Solu-Medrol. Levaquin. (3) Diabetes mellitus type 2 in obese Is this a current diagnosis for this admission?: Yes Plan: Continue Metformin. Sliding scale insulin coverage as well. (4) Hypertension Qualifiers: Hypertension type: essential hypertension Qualified Code(s): I10 - Essential (primary) hypertension Is this a current diagnosis for this admission?: Yes Plan: Continue patient's antihypertensives. (5) Obesity Qualifiers: Obesity type: due to excess calories Obesity classification: adult class 1 (BMI 30 - 34.9) Serious obesity comorbidity presence: with serious comorbidity Body mass index: BMI 30.0-30.9 Qualified Code(s): E66.09 - Other obesity due to excess calories; Z68.30 - Body mass index (BMI) 30.0-30.9, adult Is this a current diagnosis for this admission?: Yes Plan: Strongly encourage lifestyle modification - Time Time Spent with patient: 15-24 minutes Anticipated discharge: Home Within: within 72 hours
[2020-04-14] MEDS: ATORVASTATIN CALCIUM 40 MG TABLET PO SCH (22:05)
[2020-04-15 05:29] LABS: ABSOLUTE LYMPHOCYTES (AUTO) 0.8 10^3/uL (0.5-4.7); ABSOLUTE MONOCYTES (AUTO) 0.2 10^3/uL (0.1-1.4); ABSOLUTE NEUT (AUTO) 5.2 10^3/uL (1.7-8.2); BASOPHILS % (AUTO) 0.2 % (0-2); EOSINOPHILS % (AUTO) 0.2 % (0-6); HEMATOCRIT 52.5 % (36.0-47.0); LYMPHOCYTES % (AUTO) 13.1 % (13-45); MEAN CORPUSCULAR HEMOGLOBIN 28.4 pg (27.0-33.4); MEAN CORPUSCULAR HGB CONC 32.3 g/dL (32.0-36.0); MEAN CORPUSCULAR VOLUME 88 fl (80-97); MONOCYTES % (AUTO) 3.8 % (3-13); PLATELET COUNT 186 10^3/uL (150-450); RED BLOOD COUNT 5.98 10^6/uL (3.72-5.28); RED CELL DISTRIBUTION WIDTH 16.3 % (11.5-14.0); SEGMENTED NEUTROPHILS % (AUTO) 82.7 % (42-78); TOTAL CELLS COUNTED % (AUTO) 100 %; WHITE BLOOD COUNT 6.2 10^3/uL (4.0-10.5)
[2020-04-15] MEDS: METHYLPREDNISOLONE INJ 40 MG/1 ML SDV IV SCH ×3 (05:32→21:32)
[2020-04-15] MEDS: HEPARIN SOD (PORCINE) 5,000 UNIT/ML 1 ML VIAL SUBCUT SCH ×3 (05:32→21:32)
[2020-04-15 05:46] LABS: BLOOD UREA NITROGEN 22 mg/dL (7-20); CALCIUM 9.5 mg/dL (8.4-10.2); CHLORIDE 85 mmol/L (98-107); GLUCOSE 253 mg/dL (75-110); POTASSIUM 5.1 mmol/L (3.6-5.0)
[2020-04-15 06:01] LABS: CARBON DIOXIDE 43 mmol/L (22-30)
[2020-04-15 06:09] LABS: ANION GAP 4 (5-19)
[2020-04-15 07:01] LABS: VENOUS BLOOD BASE EXCESS 15.8 mmol/L; VENOUS BLOOD HCO3 48.1 mmol/L (20-32); VENOUS BLOOD PH 7.33 (7.30-7.42)
[2020-04-15 07:04] LABS: VENOUS BLOOD PCO2 93.7 mmHg (35-63)
[2020-04-15] MEDS: IPRATROPIUM BROMIDE 0.02% NEB 0.5 MG/2.5 ML AMPUL NEB PRN (08:00)
[2020-04-15] MEDS: METFORMIN HCL 500 MG TABLET PO SCH ×2 (08:19→17:08)
[2020-04-15] MEDS: HYDROCHLOROTHIAZIDE 12.5 MG TABLET PO SCH (08:19)
[2020-04-15] MEDS: INSULIN LISPRO 100 UNIT/ML 3 ML VIAL SUBCUT SCH ×4 (08:19→21:33)
[2020-04-15 08:44] LABS: ARTERIAL BLOOD BASE EXCESS 14.5 mmol/L; ARTERIAL BLOOD FIO2 40%; ARTERIAL BLOOD H2CO3 2.68 mmol/L (1.05-1.35); ARTERIAL BLOOD HCO3 46.4 mmol/L (20-24); ARTERIAL BLOOD O2 SATURATION 95.2 % (94-98); ARTERIAL BLOOD PH 7.33 (7.35-7.45); ARTERIAL BLOOD TOTAL CO2 49.1 mmol/L (21-25)
[2020-04-15 08:49] LABS: ARTERIAL BLOOD PCO2 89.2 mmHg (35-45)
[2020-04-15] MEDS: LEVOFLOXACIN 500 MG TABLET PO SCH (09:12)
[2020-04-15] MEDS: LOSARTAN POTASSIUM 50 MG TABLET PO SCH (09:12)
[2020-04-15] MEDS: AMLODIPINE BESYLATE 10 MG TABLET PO SCH (09:12)
[2020-04-15] MEDS ORDERED: MORPHINE SULFATE 10 MG/ML INJ IV PRN (09:43)
[2020-04-15] MEDS ORDERED: NORMAL SALINE 1000 ML 1,000 ML IV PRN (09:54)
[2020-04-15] MEDS ORDERED: BISACODYL 5 MG TABEC PO PRN (09:55)
[2020-04-15] MEDS ORDERED: MINERAL OIL ENEMA 133 ML PR PRN (09:55)
[2020-04-15] MEDS ORDERED: LEVALBUTEROL HCL NEB 0.63 MG/3 ML AMPUL NEB ONE ×2 (10:02→11:00)
--- NOTE | 2020-04-15 10:10 | PDOC PROGRESS REPORT ---
Subjective Progress Note for:: 04/15/20 Subjective:: Patient is slowly acclimating to BiPAP. ABG however still shows PCO2 of 89. Surprisingly the patient is mentating appropriately. She still feels quite weak. She still feels wheezy and occasionally has coughing spasms. She feels like there is more sputum to cough up. She continues to have dry eyes and reports frequent aphthous ulcers. In addition she is constipated. Reason For Visit: ACUTE HYPERCAPNEIC RESPIRATORY FAILURE Physical Exam Vital Signs: Temp Pulse Resp BP Pulse Ox 97.4 F 83 19 150/86 H 98 04/15/20 07:52 04/15/20 08:04 04/15/20 08:04 04/15/20 07:52 04/15/20 08:04 Intake & Output 04/14/20 04/15/20 04/16/20 06:59 06:59 06:59 Intake Total 1592 1440 Output Total 2400 Balance -808 1440 Weight 93.4 kg 93.4 kg General appearance: PRESENT: cooperative, mild distress, obese, well-developed Head exam: PRESENT: atraumatic, normocephalic Eye exam: PRESENT: conjunctival injection, conjunctiva pink. ABSENT: scleral icterus Ear exam: PRESENT: normal external ear exam. ABSENT: bleeding, drainage Mouth exam: PRESENT: dry mucosa, tongue midline Neck exam: PRESENT: full ROM. ABSENT: carotid bruit, JVD, lymphadenopathy Respiratory exam: PRESENT: prolonged expiratory phas, symmetrical, wheezes - Diffuse bilateral expiratory wheezes. ABSENT: accessory muscle use, rales, rhonchi Cardiovascular exam: PRESENT: RRR, +S1, +S2. ABSENT: diastolic murmur, irregular rhythm, systolic murmur GI/Abdominal exam: PRESENT: normal bowel sounds, soft. ABSENT: distended, guarding, tenderness Rectal exam: PRESENT: deferred Gentrourinary exam: ABSENT: indwelling catheter Extremities exam: ABSENT: pedal edema Musculoskeletal exam: PRESENT: ambulatory, normal inspection. ABSENT: deformity, dislocation Neurological exam: PRESENT: alert, awake, oriented to person, oriented to place, oriented to time, oriented to situation, CN II-XII grossly intact. ABSENT: altered Psychiatric exam: PRESENT: appropriate affect. ABSENT: agitated, anxious Focused psych exam: ABSENT: delusional, paranoid, restlessness Skin exam: PRESENT: normal color, other - Possible small fever sore upper lip. ABSENT: pallor - Slightly flushed face ease Results Laboratory Results: 04/15/20 05:18 04/15/20 05:18 04/14/20 04/15/20 04/15/20 10:48 05:18 05:18 WBC 6.2 RBC 5.98 H Hgb 17.0 H Hct 52.5 H MCV 88 MCH 28.4 MCHC 32.3 RDW 16.3 H Plt Count 186 Seg Neutrophils % 82.7 H Carbonic Acid 2.59 H HCO3/H2CO3 Ratio 15:1 ABG pH 7.30 L ABG pCO2 86.0 H* ABG pO2 90.6 ABG HCO3 41.0 H ABG O2 Saturation 95.6 ABG Base Excess 9.6 VBG pH VBG pCO2 VBG HCO3 VBG Base Excess FiO2 40% Sodium 132.4 L Potassium 5.1 H Chloride 85 L Carbon Dioxide 43 H* Anion Gap 4 L BUN 22 H Creatinine 0.48 L Est GFR ( Amer) > 60 Glucose 253 H Calcium 9.5 04/15/20 04/15/20 04/15/20 05:18 06:44 08:25 WBC RBC Hgb Hct MCV MCH MCHC RDW Plt Count Seg Neutrophils % Carbonic Acid 2.68 H HCO3/H2CO3 Ratio 17:1 ABG pH 7.33 L ABG pCO2 89.2 H* ABG pO2 85.0 ABG HCO3 46.4 H ABG O2 Saturation 95.2 ABG Base Excess 14.5 VBG pH Cancelled 7.33 VBG pCO2 Cancelled 93.7 H* VBG HCO3 Cancelled 48.1 H VBG Base Excess Cancelled 15.8 FiO2 40% Sodium Potassium Chloride Carbon Dioxide Anion Gap BUN Creatinine Est GFR ( Amer) Glucose Calcium 04/12/20 13:25 Troponin I 0.026 Impressions: Chest X-Ray 04/12/20 00:00 IMPRESSION: NO ACUTE RADIOGRAPHIC FINDING IN THE CHEST. Chest CT 04/13/20 00:00 IMPRESSION: NO SIGNIFICANT FINDING ON NON-CONTRASTED CHEST CT. Assessment and Plan - Diagnosis (1) Acute respiratory failure with hypoxia and hypercapnia Is this a current diagnosis for this admission?: Yes Plan: PCO2 was still 89 this morning. She is adjusting better to being BiPAP. I did have them increase the rate slightly. She still has expiratory wheezes and when I further investigated her "allergic reaction" to albuterol it is possible that it could have been more of anxiety and panic. A test dose of levalbuterol was performed. The patient had no adverse effect and so I will order levalbuterol and ipratropium scheduled and as needed. In addition I have added montelukast. I will add budesonide and decrease the systemic steroids. (2) Asthma with COPD with exacerbation Is this a current diagnosis for this admission?: Yes Plan: As noted above, after a test dose was unremarkable I have now ordered scheduled Xopenex with ipratropium every 6 hours. I have also ordered budesonide every 12 hours and as needed nebulizers are available. I added montelukast and I have decreased the Solu-Medrol to 40 mg every 12 hours. (3) Hyperglycemia due to type 2 diabetes mellitus Qualifiers: Diabetes mellitus care home insulin use: without terminal operations supervisor use Qualified Code(s): E11.65 - Type 2 diabetes mellitus with hyperglycemia Is this a current diagnosis for this admission?: Yes Plan: Continue metformin. The patient is also on sliding scale and diabetic diet. I may need to add some Lantus while she is on the systemic steroids. (4) Polycythemia secondary to hypoxia Is this a current diagnosis for this admission?: Yes Plan: Hemoglobin is still significantly elevated at 17. (5) Dry eyes Is this a current diagnosis for this admission?: Yes Plan: Artificial tears have been ordered. (6) Constipation Qualifiers: Constipation type: slow transit constipation Qualified Code(s): K59.01 - Slow transit constipation Is this a current diagnosis for this admission?: Yes Plan: Likely a combination of slow transit and mild dehydration. Will start MiraLAX daily. Mineral enema every 12 hours if needed. Bisacodyl 10 mg p.o. daily as needed. (7) Hypertension Qualifiers: Hypertension type: essential hypertension Qualified Code(s): I10 - Essential (primary) hypertension Is this a current diagnosis for this admission?: Yes Plan: Reasonable blood pressure control on amlodipine and losartan. Systemic steroids may elevate the blood pressure slightly as well. (8) Cough Is this a current diagnosis for this admission?: Yes Plan: Guaifenesin extended release 600 mg twice daily. Guaifenesin with d extromethorphan every 6 hours as needed. Low-dose morphine sulfate IV for coughing spasms not relieved with medications as above. (9) Dehydration Is this a current diagnosis for this admission?: Yes Plan: BUN is up to 22. She has taken in about 1.5 L of fluid daily. She is on hydrochlorothiazide. I may need to hold the chlorothiazide. (10) Allergy status to other drugs, medicaments and biological substances status Is this a current diagnosis for this admission?: Yes Plan: When further investigated I asked the question about her allergy to albuterol. This happened over 10 years ago. What she describes seen more like an anxiety/panic reaction than a true anaphylactic reaction. I did have respiratory therapy to a test dose of 0.63 mg of Xopenex. The patient had no tachycardia and no adverse reaction. We will start scheduled doses to see if this helps with her breathing. - Time Time Spent with patient: 25-34 minutes Medications reviewed and adjusted accordingly: Yes Anticipated discharge: Home Within: Other - Will likely need at least 4 to 5 days
[2020-04-15] MEDS ORDERED: LEVALBUTEROL HCL NEB 1.25 MG/3 ML AMPUL NEB PRN (10:39)
[2020-04-15] MEDS ORDERED: MONTELUKAST SODIUM 5 MG TAB.CHEW PO ONE (11:00)
[2020-04-15] MEDS: GUAIFENESIN/D-METHORPHAN (200-20 MG) SYRUP 10 ML PO PRN (11:20)
[2020-04-15] MEDS: GUAIFENESIN 600 MG TABLET.SA PO SCH ×2 (11:20→21:31)
[2020-04-15] MEDS: POLYETHYLENE GLYCOL 3350 POWDER 17 GM/1 PACKET PO SCH (11:20)
[2020-04-15] MEDS: IPRATROPIUM BROMIDE 0.02% NEB 0.5 MG/2.5 ML AMPUL NEB SCH ×2 (13:43→19:43)
[2020-04-15] MEDS: LEVALBUTEROL HCL NEB 1.25 MG/3 ML AMPUL NEB SCH ×2 (13:43→19:43)
[2020-04-15] MEDS: POLYVINYL ALCOHOL 1.4% OPH SOLN 15 ML OU SCH ×3 (13:50→21:36)
[2020-04-15] MEDS: BUDESONIDE NEB 0.5 MG/2 ML AMPUL NEB SCH (19:43)
[2020-04-15] MEDS: MONTELUKAST SODIUM 10 MG TABLET PO SCH (21:31)
[2020-04-15] MEDS: ATORVASTATIN CALCIUM 40 MG TABLET PO SCH (21:32)
[2020-04-16] MEDS: LEVALBUTEROL HCL NEB 1.25 MG/3 ML AMPUL NEB SCH ×4 (02:21→20:09)
[2020-04-16] MEDS: IPRATROPIUM BROMIDE 0.02% NEB 0.5 MG/2.5 ML AMPUL NEB SCH ×4 (02:21→20:09)
[2020-04-16] MEDS: HEPARIN SOD (PORCINE) 5,000 UNIT/ML 1 ML VIAL SUBCUT SCH ×3 (05:57→22:33)
[2020-04-16 05:58] LABS: BLOOD UREA NITROGEN 18 mg/dL (7-20); CALCIUM 9.5 mg/dL (8.4-10.2); CHLORIDE 85 mmol/L (98-107); GLUCOSE 276 mg/dL (75-110); POTASSIUM 4.8 mmol/L (3.6-5.0)
[2020-04-16 06:18] LABS: ANION GAP 6 (5-19)
[2020-04-16 06:20] LABS: CARBON DIOXIDE 41 mmol/L (22-30)
[2020-04-16] MEDS: BUDESONIDE NEB 0.5 MG/2 ML AMPUL NEB SCH ×2 (07:49→20:09)
[2020-04-16] MEDS: INSULIN LISPRO 100 UNIT/ML 3 ML VIAL SUBCUT SCH ×4 (08:07→22:36)
[2020-04-16] MEDS: METFORMIN HCL 500 MG TABLET PO SCH ×2 (08:08→16:57)
[2020-04-16] MEDS: HYDROCHLOROTHIAZIDE 12.5 MG TABLET PO SCH (08:09)
[2020-04-16 08:30] LABS: ARTERIAL BLOOD BASE EXCESS 13.8 mmol/L; ARTERIAL BLOOD FIO2 40%; ARTERIAL BLOOD HCO3 43.5 mmol/L (20-24); ARTERIAL BLOOD O2 SATURATION 95.5 % (94-98); ARTERIAL BLOOD PH 7.39 (7.35-7.45); ARTERIAL BLOOD PO2 81.8 mmHg (80-100); ARTERIAL BLOOD TOTAL CO2 45.7 mmol/L (21-25)
[2020-04-16 08:32] LABS: ARTERIAL BLOOD PCO2 73.1 mmHg (35-45)
--- NOTE | 2020-04-16 09:24 | PDOC PROGRESS REPORT ---
Subjective Progress Note for:: 04/16/20 Subjective:: The patient is sitting up eating breakfast on the edge of the bed on nasal cannula. She looks quite comfortable. PCO2 is down to 73. She has been tolerating the levalbuterol without difficulty. Reason For Visit: ACUTE HYPERCAPNEIC RESPIRATORY FAILURE Physical Exam Vital Signs: Temp Pulse Resp BP Pulse Ox 97.4 F 75 16 174/89 H 100 04/16/20 08:00 04/16/20 08:00 04/16/20 08:00 04/16/20 08:00 04/16/20 08:00 Intake & Output 04/15/20 04/16/20 04/17/20 06:59 06:59 06:59 Intake Total 1440 960 Balance 1440 960 Weight 93.4 kg 95.2 kg General appearance: PRESENT: no acute distress, cooperative, well-developed Head exam: PRESENT: atraumatic, normocephalic Eye exam: PRESENT: conjunctiva pink, EOMI. ABSENT: scleral icterus Ear exam: PRESENT: normal external ear exam. ABSENT: bleeding, drainage Mouth exam: PRESENT: dry mucosa, tongue midline Teeth exam: ABSENT: poor dentation Respiratory exam: PRESENT: prolonged expiratory phas, symmetrical, unlabored, wheezes - Noticeably less wheezing. Faint occasional expiratory wheeze noted.. ABSENT: accessory muscle use, rales, rhonchi, tachypnea Cardiovascular exam: PRESENT: RRR, +S1, +S2. ABSENT: bradycardia, diastolic murmur, irregular rhythm, systolic murmur, tachycardia GI/Abdominal exam: PRESENT: normal bowel sounds, soft. ABSENT: distended, guard ing, tenderness Rectal exam: PRESENT: deferred Gentrourinary exam: ABSENT: indwelling catheter Extremities exam: ABSENT: pedal edema Musculoskeletal exam: PRESENT: ambulatory, normal inspection. ABSENT: deformity, dislocation Neurological exam: PRESENT: alert, awake, oriented to person, oriented to place, oriented to time, oriented to situation, CN II-XII grossly intact. ABSENT: altered, motor sensory deficit Psychiatric exam: PRESENT: appropriate affect, normal mood. ABSENT: agitated, anxious Focused psych exam: ABSENT: delusional, paranoid, restlessness Skin exam: PRESENT: dry, rash, warm, other - With some facial flushing Results Laboratory Results: 04/15/20 05:18 04/16/20 04:47 04/16/20 04/16/20 04:47 08:20 Carbonic Acid 2.20 H HCO3/H2CO3 Ratio 19:1 ABG pH 7.39 ABG pCO2 73.1 H* ABG pO2 81.8 ABG HCO3 43.5 H ABG O2 Saturation 95.5 ABG Base Excess 13.8 FiO2 40% Sodium 131.7 L Potassium 4.8 Chloride 85 L Carbon Dioxide 41 H* Anion Gap 6 BUN 18 Creatinine 0.46 L Est GFR ( Amer) > 60 Glucose 276 H Calcium 9.5 04/12/20 13:25 Troponin I 0.026 Impressions: Chest X-Ray 04/12/20 00:00 IMPRESSION: NO ACUTE RADIOGRAPHIC FINDING IN THE CHEST. Chest CT 04/13/20 00:00 IMPRESSION: NO SIGNIFICANT FINDING ON NON-CONTRASTED CHEST CT. Assessment and Plan - Diagnosis (1) Acute respiratory failure with hypoxia and hypercapnia Is this a current diagnosis for this admission?: Yes Plan: Now that the patient is tolerating nebulizer treatments her PCO2 appears to be coming down. She is more comfortable with the BiPAP as well. She will likely need BiPAP at home. Long-term goal would be to try and reduce her PCO2 into the 50s or low 60s. (2) Asthma with COPD with exacerbation Is this a current diagnosis for this admission?: Yes Plan: In addition to adding the nebulizers she has now on Singulair. (3) Hyperglycemia due to type 2 diabetes mellitus Qualifiers: Diabetes mellitus intermediate project manager insulin use: without skilled nursing use Qualified Code(s): E11.65 - Type 2 diabetes mellitus with hyperglycemia Is this a current diagnosis for this admission?: Yes Plan: Still with the majority of Accu-Cheks greater than 200. I have added 6 units of Lantus each night. As the steroid doses come down this will be able to decrease or be discontinued. (4) Polycythemia secondary to hypoxia Is this a current diagnosis for this admission?: Yes Plan: No significant change therefore I am not drawing a CBC daily. (5) Dry eyes Is this a current diagnosis for this admission?: Yes Plan: Much better with artificial tears (6) Constipation Qualifiers: Constipation type: slow transit constipation Qualified Code(s): K59.01 - Slow transit constipation Is this a current diagnosis for this admission?: Yes Plan: The patient did have a bowel movement today. Continue current regimen. (7) Hypertension Qualifiers: Hypertension type: essential hypertension Qualified Code(s): I10 - Essential (primary) hypertension Is this a current diagnosis for this admission?: Yes Plan: Reasonable blood pressure control all things considered. No changes at this time. Continue Norvasc, losartan and hydrochlorothiazide. (8) Cough Is this a current diagnosis for this admission?: Yes Plan: Improved. Patient reports still coughing up mucus. The nebulizer treatments are helping to facilitate this. (9) Dehydration Is this a current diagnosis for this admission?: Yes Plan: Resolved with IV fluids. Continue to monitor. (10) Allergy status to other drugs, medicaments and biological substances status Is this a current diagnosis for this admission?: Yes Plan: The patient is tolerating scheduled and as needed treatments with levalbuterol. We likely can remove the albuterol allergy from her record. We will continue with caution. - Time Time Spent with patient: 15-24 minutes Medications reviewed and adjusted accordingly: Yes Anticipated discharge: Home, Home with Homehealth Within: Other - Will need BiPAP at home. Discharge planning is initiating appropriate efforts.
[2020-04-16] MEDS: POLYVINYL ALCOHOL 1.4% OPH SOLN 15 ML OU SCH ×4 (10:40→22:36)
[2020-04-16] MEDS: POLYETHYLENE GLYCOL 3350 POWDER 17 GM/1 PACKET PO SCH (10:42)
[2020-04-16] MEDS: LOSARTAN POTASSIUM 50 MG TABLET PO SCH (10:45)
[2020-04-16] MEDS: GUAIFENESIN 600 MG TABLET.SA PO SCH ×2 (10:45→22:34)
[2020-04-16] MEDS: LEVOFLOXACIN 500 MG TABLET PO SCH (10:45)
[2020-04-16] MEDS: AMLODIPINE BESYLATE 10 MG TABLET PO SCH (10:45)
[2020-04-16] MEDS: METHYLPREDNISOLONE INJ 40 MG/1 ML SDV IV SCH ×2 (10:45→22:34)
[2020-04-16] MEDS ORDERED: ONDANSETRON HCL INJ/PF 4 MG/2 ML SDV IV PRN (11:30)
--- NOTE | 2020-04-16 11:56 | PDOC CONSULTATION ---
Consultation Consult Date: 04/14/20 Attending physician:: ALVARO INGRAM Provider Consulted: SULTANA EDWARDS Consult reason:: resp failure History of Present Illness Admission Date/PCP: 04/12/20 19:35 FRANCA LAMBERT PA-C History of Present Illness: BIRGIT INMAN is a 64 year old female presented to the emergency room confused and having a hard time breathing cough that she is able essentially nonproductive she denies hemoptysis PPD status is unknown no history of chronic lung disease as a child or adolescent missed exposure to passive smoke as a child as well as an adult smoked 5years up to 1/2 to 1-1/2 pack/day 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 she has no pets no recent travel she denies anginal-like chest pain she does complain of palpitations and sleeps on one pillow admits to PND but denies nocturnal cough admits to edema she admits to snoring restless sleep nocturia unrestful sleep and excessive daytime somnolence Past Medical History Cardiac Medical History: Reports: Hypertension Pulmonary Medical History: Reports: Chronic Obstructive Pulmonary Disease (COPD), Tuberculosis Endocrine Medical History: Reports: Diabetes Mellitus Type 2 GI Medical History: Denies: Cirrhosis, Crohn's Disease, Ulcerative Colitis Musculoskeltal Medical History: Denies: Gout Skin Medical History: Denies: Psoriasis Psychiatric Medical History: Denies: Depression Traumatic Medical History: Denies: Gunshot Wound, Pneumothorax Hematology: Denies: Sickle Cell Disease Past Surgical History Past Surgical History: Reports: Appendectomy, Section - x2, Cholecystectomy, Tonsillectomy Social History Information Source: Patient, [facility] Records Smoking Status: Former Smoker Number of Years Smokin Last Time Smoked: 09/28/1989 Frequency of Alcohol Use: Occasional Drugs: None Hx Prescription Drug Abuse: No Do you have pets?: No Have you had any respiratory illnesses as a child?: No Have you been exposed to any sick contacts recently?: No Have you had any recent respiratory illnesses?: No Have you travelled outside of [place] in the past 12 months?: No Family History Family History: DM, Hyperlipidemia, Hypertension Parental Family History Reviewed: Yes Children Family History Reviewed: Yes Sibling(s) Family History Reviewed.: Yes Medication/Allergy Home Medications: Amlodipine Besylate [Norvasc 10 mg Tablet] 10 mg PO DAILY 07/16/20 Atorvastatin Calcium [Lipitor 40 mg Tablet] 40 mg PO QHS 04/12/20 Metformin HCl [Glucophage 500 mg Tablet] 1,000 mg PO BIDACBS 04/12/20 Telmisartan/Hydrochlorothiazid [Telmisartan-Hctz 40-12.5 mg Tb] 1 tab PO DAILY 04/12/20 Allergies/Adverse Reactions: albuterol [Albuterol] Allergy (Severe, Verified 04/13/20 01:56) Anaphylaxis Review of Systems All systems: reviewed and no additional remarkable complaints except as stated Physical Exam Vital Signs: Temp Pulse Resp BP Pulse Ox 98.1 F 93 20 136/86 H 97 04/14/20 12:12 04/14/20 12:12 04/14/20 12:12 04/14/20 12:12 04/14/20 12:12 Intake & Output 04/13/20 04/14/20 04/15/20 06:59 06:59 06:59 Intake Total 371 1592 Output Total 300 2400 Balance 71 -808 Weight 92.5 kg 93.4 kg General appearance: PRESENT: no acute distress, cooperative, disheveled, obese, well-developed, well-nourished Head exam: PRESENT: atraumatic, normocephalic Eye exam: PRESENT: conjunctiva pale, EOMI. ABSENT: nystagmus, periorbital swelling, scleral icterus Mouth exam: PRESENT: dry mucosa, neck supple, tongue midline Teeth exam: PRESENT: poor dentation Neck exam: ABSENT: carotid bruit, full ROM, JVD, lymphadenopathy, meningismus, tenderness, thyromegaly, tracheal deviation, tracheostomy, other Respiratory exam: PRESENT: decreased breath sounds, prolonged expiratory phas, rhonchi, symmetrical, unlabored, wheezes. ABSENT: retraction, stridor, tachypnea Cardiovascular exam: PRESENT: RRR, +S1, +S2. ABSENT: tachycardia Pulses: PRESENT: normal radial pulses GI/Abdominal exam: PRESENT: soft. ABSENT: firm, mass, rebound, tenderness Extremities exam: PRESENT: +1 edema. ABSENT: calf tenderness, tenderness Musculoskeletal exam: ABSENT: deformity, dislocation Neurological exam: PRESENT: alert, awake Psychiatric exam: PRESENT: appropriate affect Skin exam: PRESENT: dry, warm Results Laboratory Results: 04/14/20 05:05 04/14/20 05:05 04/14/20 04/14/20 04/14/20 05:05 05:05 08:28 WBC 8.1 RBC 6.05 H Hgb 17.2 H Hct 54.1 H MCV 89 MCH 28.3 MCHC 31.7 L RDW 16.4 H Plt Count 193 Seg Neutrophils % 85.6 H Carbonic Acid 2.98 H HCO3/H2CO3 Ratio 15:1 ABG pH 7.28 L ABG pCO2 99.1 H* ABG pO2 84.3 ABG HCO3 45.0 H ABG O2 Saturation 94.3 ABG Base Excess 12.0 FiO2 5L Sodium 132.6 L Potassium 5.1 H Chloride 87 L Carbon Dioxide 39 H Anion Gap 7 BUN 26 H Creatinine 0.48 L Est GFR ( Amer) > 60 Glucose 239 H Calcium 9.4 04/14/20 10:48 WBC RBC Hgb Hct MCV MCH MCHC RDW Plt Count Seg Neutrophils % Carbonic Acid 2.59 H HCO3/H2CO3 Ratio 15:1 ABG pH 7.30 L ABG pCO2 86.0 H* ABG pO2 90.6 ABG HCO3 41.0 H ABG O2 Saturation 95.6 ABG Base Excess 9.6 FiO2 40% Sodium Potassium Chloride Carbon Dioxide Anion Gap BUN Creatinine Est GFR ( Amer) Glucose Calcium 04/12/20 13:25 Troponin I 0.026 Impressions: Chest X-Ray 04/12/20 00:00 IMPRESSION: NO ACUTE RADIOGRAPHIC FINDING IN THE CHEST. Chest CT 04/13/20 00:00 IMPRESSION: NO SIGNIFICANT FINDING ON NON-CONTRASTED CHEST CT. Assessment & Plan - Diagnosis (1) Acute respiratory failure with hypoxia and hypercapnia Is this a current diagnosis for this admission?: Yes Plan: Consider at adding a long-acting beta agonist Generic Name Dose Route Start Last Admin Trade Name Freq PRN Reason Stop Dose Admin Methylprednisolone Sodium Succinate 40 mg 04/12/20 22:00 04/14/20 13:21 Solu-Medrol Inj/Pf 40 Mg/1 Ml Sdv IV 05/12/20 21:59 40 mg Q8 JORGE Ipratropium Rodney 0.5 mg 04/14/20 02:04 04/14/20 08:40 Atrovent 0.02% Neb 0.5 Mg/2.5 Ml Ampul NEB 05/14/20 02:03 0.5 mg [id number] PRN WHEEZING The above patient has failed BiPAP with a patent airway. This patient would benefit from noninvasive mechanical ventilation via the trilogy AVAPS/AE and faster responding AVAPS rates. The trilogy is able to provide a target tidal volume and also adjusting the EPAP pressures to maintain a patent airway as well as an oral backup rate this machine will help improve PaCO2 levels. The severity of the patient's condition will lead to future hospitalizations and readmissions as well as life-threatening situations without the use of this d evice day and night. Trilogy home vent needed for hypercapnic respiratory failure. [facility] or [facility] to follow for trilogy set up. (2) Obesity Qualifiers: Obesity type: due to excess calories Obesity classification: adult class 1 (BMI 30 - 34.9) Serious obesity comorbidity presence: with serious comorbidity Body mass index: BMI 30.0-30.9 Qualified Code(s): E66.09 - Other obesity due to excess calories; Z68.30 - Body mass index (BMI) 30.0-30.9, adult Is this a current diagnosis for this admission?: Yes - Time Time Spent with patient: 55 min Time Spent: 50 to 70 Minutes
[2020-04-16] MEDS: GUAIFENESIN/D-METHORPHAN (200-20 MG) SYRUP 10 ML PO PRN (13:45)
[2020-04-16] MEDS: MONTELUKAST SODIUM 10 MG TABLET PO SCH (22:35)
[2020-04-16] MEDS: ATORVASTATIN CALCIUM 40 MG TABLET PO SCH (22:35)
[2020-04-16] MEDS: INSULIN GLARGINE,HUM.REC.ANLOG 1,000 UNIT/10 ML VIAL SUBCUT SCH (22:37)
[2020-04-17] MEDS: IPRATROPIUM BROMIDE 0.02% NEB 0.5 MG/2.5 ML AMPUL NEB SCH ×4 (01:59→19:46)
[2020-04-17] MEDS: LEVALBUTEROL HCL NEB 1.25 MG/3 ML AMPUL NEB SCH ×4 (02:00→19:46)
[2020-04-17] MEDS: HEPARIN SOD (PORCINE) 5,000 UNIT/ML 1 ML VIAL SUBCUT SCH ×3 (06:11→21:46)
[2020-04-17] MEDS: BUDESONIDE NEB 0.5 MG/2 ML AMPUL NEB SCH ×2 (07:57→19:46)
[2020-04-17] MEDS: METFORMIN HCL 500 MG TABLET PO SCH ×2 (08:02→17:23)
[2020-04-17] MEDS: HYDROCHLOROTHIAZIDE 12.5 MG TABLET PO SCH (08:02)
[2020-04-17] MEDS: INSULIN LISPRO 100 UNIT/ML 3 ML VIAL SUBCUT SCH ×4 (08:02→21:46)
[2020-04-17] MEDS: POLYVINYL ALCOHOL 1.4% OPH SOLN 15 ML OU SCH ×4 (09:11→22:00)
[2020-04-17] MEDS: LEVOFLOXACIN 500 MG TABLET PO SCH (09:11)
[2020-04-17] MEDS: LOSARTAN POTASSIUM 50 MG TABLET PO SCH (09:12)
[2020-04-17] MEDS: METHYLPREDNISOLONE INJ 40 MG/1 ML SDV IV SCH (09:12)
[2020-04-17] MEDS: GUAIFENESIN 600 MG TABLET.SA PO SCH ×2 (09:12→21:42)
[2020-04-17] MEDS: AMLODIPINE BESYLATE 10 MG TABLET PO SCH (09:12)
[2020-04-17] MEDS: POLYETHYLENE GLYCOL 3350 POWDER 17 GM/1 PACKET PO SCH (09:12)
[2020-04-17] MEDS: GUAIFENESIN/D-METHORPHAN (200-20 MG) SYRUP 10 ML PO PRN (09:19)
--- NOTE | 2020-04-17 10:59 | PDOC PROGRESS REPORT ---
Subjective Progress Note for:: 04/17/20 Subjective:: The patient is doing well. She is weaning from BiPAP. The nasal cannula gives her a very dry nose and she is requesting a nose spray. She definitely feels that she is improved. Home BiPAP and nebulizer appointment has been ordered. Reason For Visit: ACUTE HYPERCAPNEIC RESPIRATORY FAILURE Physical Exam Vital Signs: Temp Pulse Resp BP Pulse Ox 97.5 F 77 15 167/96 H 96 04/17/20 07:47 04/17/20 07:57 04/17/20 07:57 04/17/20 07:47 04/17/20 07:57 Intake & Output 04/16/20 04/17/20 04/18/20 06:59 06:59 06:59 Intake Total 960 1785 Output Total 4600 Balance 960 -2815 Weight 95.2 kg 93.7 kg General appearance: PRESENT: no acute distress, cooperative, well-developed Head exam: PRESENT: atraumatic, normocephalic Eye exam: PRESENT: conjunctiva pink, EOMI. ABSENT: scleral icterus Ear exam: PRESENT: normal external ear exam. ABSENT: bleeding, drainage Mouth exam: PRESENT: moist, tongue midline Teeth exam: ABSENT: poor dentation Neck exam: PRESENT: full ROM. ABSENT: carotid bruit, JVD, lymphadenopathy, tenderness, tracheostomy Respiratory exam: PRESENT: clear to auscultation dahiana, prolonged expiratory phas, symmetrical, unlabored. ABSENT: rales, rhonchi, tachypnea, wheezes Cardiovascular exam: PRESENT: RRR, +S1, +S2, systolic murmur - 1/6. ABSENT: bradycardia, diastolic murmur, irregular rhythm, tachycardia GI/Abdominal exam: PRESENT: normal bowel sounds, soft. ABSENT: distended, guarding, tenderness Rectal exam: PRESENT: deferred Gentrourinary exam: ABSENT: indwelling catheter Extremities exam: ABSENT: pedal edema Musculoskeletal exam: PRESENT: ambulatory, full ROM, normal inspection. ABSENT: deformity, dislocation Neurological exam: PRESENT: alert, awake, oriented to person, oriented to place, oriented to time, oriented to situation, CN II-XII grossly intact. ABSENT: altered, motor sensory deficit Psychiatric exam: PRESENT: appropriate affect, normal mood. ABSENT: agitated, anxious Focused psych exam: ABSENT: delusional, paranoid, restlessness Skin exam: PRESENT: dry, normal color, warm. ABSENT: rash Results Laboratory Results: 04/15/20 05:18 04/16/20 04:47 04/13/20 14:40 Sputum Gram Stain - Final 04/13/20 14:40 Sputum Sputum Culture - Final Yeast, Not Jodee Albicans Normal Mimi 04/12/20 13:25 Troponin I 0.026 Impressions: Chest X-Ray 04/12/20 00:00 IMPRESSION: NO ACUTE RADIOGRAPHIC FINDING IN THE CHEST. Chest CT 04/13/20 00:00 IMPRESSION: NO SIGNIFICANT FINDING ON NON-CONTRASTED CHEST CT. Assessment and Plan - Diagnosis (1) Acute respiratory failure with hypoxia and hypercapnia Is this a current diagnosis for this admission?: Yes Plan: Now that the patient is tolerating nebulizer treatments her PCO2 appears to be coming down. She is more comfortable with the BiPAP as well. She will likely need BiPAP at home. Long-term goal would be to try and reduce her PCO2 into the 50s or low 60s. BiPAP equipment was going to be picked up by her . Home nebulizer was added. Once equipment is in place I think she is stable for discharge. She will need to follow-up with pulmonology. (2) Asthma with COPD with exacerbation Is this a current diagnosis for this admission?: Yes Plan: In addition to adding the nebulizers she has now on Singulair. We will continue the nebs and inhalers as well as the Singulair. She will follow-up with Dr. Choi. (3) Hyperglycemia due to type 2 diabetes mellitus Qualifiers: Diabetes mellitus [facility] insulin use: without terminal operations supervisor use Qualified Code(s): E11.65 - Type 2 diabetes mellitus with hyperglycemia Is this a current diagnosis for this admission?: Yes Plan: Still with elevated glucose readings. I do believe they will improve when she is off of the steroids. I will discuss with the patient the use of insulin versus a secondary oral medication. (4) Polycythemia secondary to hypoxia Is this a current diagnosis for this admission?: Yes Plan: This is likely chronic and longstanding. It should improve slowly as her PCO2 decreases. She should also stay well-hydrated and discontinue any tobacco products. (5) Dry eyes Is this a current diagnosis for this admission?: Yes Plan: Artificial tears have made a significant improvement. ANUP was negative and so it is unlikely that an autoimmune process is contributing to her overall condition. (6) Hypertension Qualifiers: Hypertension type: essential hypertension Qualified Code(s): I10 - Essential (primary) hypertension Is this a current diagnosis for this admission?: Yes Plan: Not quite ideally controlled. I believe her pressures will improve when she is off of the steroids. (7) Cough Is this a current diagnosis for this admission?: Yes Plan: Continues to improve. Continue Mucinex. (8) Dehydration Is this a current diagnosis for this admission?: Yes Plan: Resolved with IV fluids (9) Allergy status to other drugs, medicaments and biological substances status Is this a current diagnosis for this admission?: Yes Plan: The patient is tolerating scheduled and as needed treatments with levalbuterol. We likely can remove the albuterol allergy from her record. We will continue with caution. (10) Constipation Qualifiers: Constipation type: slow transit constipation Qualified Code(s): K59.01 - Slow transit constipation Is this a current diagnosis for this admission?: Yes Plan: Resolved - Time Time Spent with patient: 15-24 minutes Medications reviewed and adjusted accordingly: Yes Anticipated discharge: Home Within: within 48 hours
[2020-04-17] MEDS: SODIUM CHLORIDE NASAL SPRAY 44 ML NASL SCH ×3 (11:46→22:30)
[2020-04-17 13:38] LABS: ANTINUCLEAR ANTIBODIES Negative (Negative)
[2020-04-17] MEDS: ATORVASTATIN CALCIUM 40 MG TABLET PO SCH (21:42)
[2020-04-17] MEDS: MONTELUKAST SODIUM 10 MG TABLET PO SCH (21:42)
[2020-04-17] MEDS: INSULIN GLARGINE,HUM.REC.ANLOG 1,000 UNIT/10 ML VIAL SUBCUT SCH (21:47)
[2020-04-18] MEDS: IPRATROPIUM BROMIDE 0.02% NEB 0.5 MG/2.5 ML AMPUL NEB SCH ×3 (01:53→13:35)
[2020-04-18] MEDS: LEVALBUTEROL HCL NEB 1.25 MG/3 ML AMPUL NEB SCH ×3 (01:54→13:35)
[2020-04-18 04:54] LABS: HEMATOCRIT 54.5 % (36.0-47.0); HEMOGLOBIN 17.7 g/dL (12.0-15.5); MEAN CORPUSCULAR HEMOGLOBIN 28.3 pg (27.0-33.4); MEAN CORPUSCULAR HGB CONC 32.4 g/dL (32.0-36.0); MEAN CORPUSCULAR VOLUME 87 fl (80-97); PLATELET COUNT 146 10^3/uL (150-450); RED BLOOD COUNT 6.25 10^6/uL (3.72-5.28); RED CELL DISTRIBUTION WIDTH 15.9 % (11.5-14.0); WHITE BLOOD COUNT 7.9 10^3/uL (4.0-10.5)
[2020-04-18] MEDS: HEPARIN SOD (PORCINE) 5,000 UNIT/ML 1 ML VIAL SUBCUT SCH ×2 (05:42→13:47)
[2020-04-18 07:12] LABS: ANION GAP 7 (5-19); BLOOD UREA NITROGEN 18 mg/dL (7-20); CALCIUM 9.8 mg/dL (8.4-10.2); CARBON DIOXIDE 36 mmol/L (22-30); CHLORIDE 89 mmol/L (98-107); GLUCOSE 164 mg/dL (75-110); POTASSIUM 4.5 mmol/L (3.6-5.0)
[2020-04-18] MEDS: BUDESONIDE NEB 0.5 MG/2 ML AMPUL NEB SCH (07:42)
[2020-04-18] MEDS: INSULIN LISPRO 100 UNIT/ML 3 ML VIAL SUBCUT SCH ×3 (08:19→16:26)
[2020-04-18] MEDS: METFORMIN HCL 500 MG TABLET PO SCH ×2 (08:44→16:25)
[2020-04-18] MEDS: SODIUM CHLORIDE NASAL SPRAY 44 ML NASL SCH ×3 (08:45→16:30)
[2020-04-18] MEDS: HYDROCHLOROTHIAZIDE 12.5 MG TABLET PO SCH (08:45)
[2020-04-18] MEDS: POLYETHYLENE GLYCOL 3350 POWDER 17 GM/1 PACKET PO SCH (09:23)
[2020-04-18] MEDS: AMLODIPINE BESYLATE 10 MG TABLET PO SCH (09:28)
[2020-04-18] MEDS: GUAIFENESIN 600 MG TABLET.SA PO SCH (09:28)
[2020-04-18] MEDS: POLYVINYL ALCOHOL 1.4% OPH SOLN 15 ML OU SCH ×2 (09:29→13:48)
--- NOTE | 2020-04-18 09:44 | PDOC DISCHARGE SUMMARY ---
Impression - Admit/DC Date/PCP Admission Date/Primary Care Provider: 04/12/20 19:35 FRANCA LAMBERT PA-C Discharge Date: 04/18/20 - Discharge Diagnosis (1) Acute respiratory failure with hypoxia and hypercapnia Is this a current diagnosis for this admission?: Yes (2) Asthma with COPD with exacerbation Is this a current diagnosis for this admission?: Yes (3) Hyperglycemia due to type 2 diabetes mellitus Is this a current diagnosis for this admission?: Yes (4) Polycythemia secondary to hypoxia Is this a current diagnosis for this admission?: Yes (5) Dry eyes Is this a current diagnosis for this admission?: Yes (6) Hypertension Is this a current diagnosis for this admission?: Yes (7) Cough Is this a current diagnosis for this admission?: Yes (8) Dehydration Is this a current diagnosis for this admission?: Yes (9) Allergy status to other drugs, medicaments and biological substances status Is this a current diagnosis for this admission?: Yes (10) Constipation Is this a current diagnosis for this admission?: Yes - Additional Information Discharge Diet: Cardiac Discharge Activity: Activity As Tolerated, Balance Activity w/Rest Referrals: FRANCA LAMBERT PA-C [Primary Care Provider] - 05/01/20 9:15 am SULTANA CHOI MD [ACTIVE STAFF] - 04/24/20 2:30 pm Prescriptions: Blood-Glucose Meter, Drum-Type [Accu-Chek] 1 kit MC ASDIR PRN #1 kit PRN Reason: Ipratropium [place] [Atrovent 0.02% Neb 0.5 mg/2.5 ml Ampul] 0.5 mg NEB RTQ6 30 Days #120 vial.neb Prednisone [Deltasone 10 mg Tablet] 10 mg PO ASDIR 16 Days #32 tablet Glipizide [Glucotrol 5 mg Tablet] 5 mg PO DAILY #30 tablet Montelukast Sodium [Singulair 10 mg Tablet] 10 mg PO QHS #30 tablet Levalbuterol HCl [Xopenex Neb 1.25 mg/3 ml Ampul] 1.25 mg NEB RTQ6 30 Days #120 vial.neb Home Medications: Amlodipine Besylate [Norvasc 10 mg Tablet] 10 mg PO DAILY 04/12/20 Atorvastatin Calcium [Lipitor 40 mg Tablet] 40 mg PO QHS 04/12/20 Metformin HCl [Glucophage 500 mg Tablet] 1,000 mg PO BIDACBS 04/12/20 Telmisartan/Hydrochlorothiazid [Telmisartan-Hctz 40-12.5 mg Tb] 1 tab PO DAILY 04/12/20 Blood-Glucose Meter, Drum-Type [Accu-Chek] 1 kit MC ASDIR PRN #1 kit 04/18/20 Glipizide [Glucotrol 5 mg Tablet] 5 mg PO DAILY #30 tablet 04/18/20 Guaifenesin [Mucinex Sr 600 mg Tablet.sa] 600 mg PO Q12 tablet.sa 04/18/20 Guaifenesin/D-Methorphan Hb [Robitussin-Dm Syrup 10 ml Udcup] 10 ml PO QIDP PRN syrup 04/18/20 Ipratropium [place] [Atrovent 0.02% Neb 0.5 mg/2.5 ml Ampul] 0.5 mg NEB RTQ6 30 Days #120 vial.neb 04/18/20 Levalbuterol HCl [Xopenex Neb 1.25 mg/3 ml Ampul] 1.25 mg NEB RTQ6 30 Days #120 vial.neb 04/18/20 Montelukast Sodium [Singulair 10 mg Tablet] 10 mg PO QHS #30 tablet 04/18/20 Polyethylene Glycol 3350 [Miralax Powder 17 gm/Packet] 17 gm PO DAILY powd.pack 04/18/20 Polyvinyl Alcohol [Liquitears 1.4% Ophth Soln 15 ml] 1 drop OU QID bottle 04/18/20 Prednisone [Deltasone 10 mg Tablet] 10 mg PO ASDIR 16 Days #32 tablet 04/18/20 Sodium Chloride [[place] Nasal [place] 44 ml Bottle] 1 spray NASL ACHS bottle 04/18/20 History of Present Illiness History of Present Illness: Per the admission history and physical BIRGIT INMAN is a 64 year old female with a history of hypertension and diabetes and remote history of smoking and asthma who presents with a one-week history of cough and shortness of breath. She is not had any fevers. She is been taking Mucinex to try to make the cough more productive but has not gotten much better. She came to the ER and was found to be pretty hypoxic. She was placed first on the nasal cannula and then on nonrebreather and then on BiPAP. She was taken off BiPAP at one point but back on 4 L nasal cannula and her saturations were 88 to 91%. A blood gas was checked and while her oxygenation was fine on blood gas, she was found to have a substantially elevated PCO2, greater than 100. pH was down to 7.2. Surprisingly, she had no mental status changes. Chest x-ray was negative. She said that the last time she did an albuterol treatment was in a [employer] worker office and it wound up closing up her airways and she had to go to the hospital. Hospital Course Hospital Course: (1) Acute respiratory failure with hypoxia and hypercapnia Is this a current diagnosis for this admission?: Yes Plan: It took many days to get the patient's PCO2 below 80. Monitors realize that she can tolerate his Xopenex without adverse effects and start her on scheduled nebulizers with Xopenex, ipratropium and budesonide. A long-term goal would be to try and reduce her PCO2 into the 50s or low 60s. BiPAP equipment was going to be picked up by her . Home nebulizer was added. With the new equipment in place she is stable for discharge. She will need to follow-up with pulmonology. (2) Asthma with COPD with exacerbation Is this a current diagnosis for this admission?: Yes Plan: In addition to adding the nebulizers she has now on Singulair. We will continue the nebs and inhalers as well as the Singulair. She will follow-up with Dr. Choi. (3) Hyperglycemia due to type 2 diabetes mellitus Qualifiers: Diabetes mellitus penitentiary insulin use: without intermodal customer service use Qualified Code(s): E11.65 - Type 2 diabetes mellitus with hyperglycemia Is this a current diagnosis for this admission?: Yes Plan: Glucose should improve as the steroids decreased. At this point a second oral medication once daily versus initiating an insulin program (4) Polycythemia secondary to hypoxia Is this a current diagnosis for this admission?: Yes Plan: This is likely chronic and longstanding. It should improve slowly as her PCO2 decreases. She should also stay well-hydrated and discontinue any tobacco products. (5) Dry eyes Is this a current diagnosis for this admission?: Yes Plan: Artificial tears have made a significant improvement. ANUP was negative and so it is unlikely that an autoimmune process is contributing to her overall condition. (6) Hypertension Qualifiers: Hypertension type: essential hypertension Qualified Code(s): I10 - Essential (primary) hypertension Is this a current diagnosis for this admission?: Yes Plan: Not quite ideally controlled but temporarily acceptable. I believe her pressures will improve when she is off of the steroids. (7) Cough Is this a current diagnosis for this admission?: Yes Plan: Continues to improve. Continue Mucinex. (8) Dehydration Is this a current diagnosis for this admission?: Yes Plan: Resolved with IV fluids (9) Allergy status to other drugs, medicaments and biological substances status Is this a current diagnosis for this admission?: Yes Plan: The patient is tolerating scheduled and as needed treatments with levalbuterol. We likely can remove the albuterol allergy from her record. We will continue with caution. (10) Constipation Qualifiers: Constipation type: slow transit constipation Qualified Code(s): K59.01 - Slow transit constipation Is this a current diagnosis for this admission?: Yes Plan: Resolved Physical Exam Vital Signs: Temp Pulse Resp BP Pulse Ox 97.9 F 74 16 150/87 H 92 04/18/20 07:28 04/18/20 07:43 04/18/20 07:43 04/18/20 07:28 04/18/20 07:43 Intake & Output 04/17/20 04/18/20 04/19/20 06:59 06:59 06:59 Intake Total 1785 1962 Output Total 4600 4450 Balance -2815 -2488 Weight 93.7 kg 92.1 kg General appearance: PRESENT: no acute distress, cooperative Respiratory exam: PRESENT: clear to auscultation [place], symmetrical, unlabored. ABSENT: rales, rhonchi, tachypnea, wheezes Cardiovascular exam: PRESENT: RRR, +S1, +S2 GI/Abdominal exam: PRESENT: normal bowel sounds, soft. ABSENT: distended, mass, tenderness Neurological exam: PRESENT: alert, awake, oriented to person, oriented to place, oriented to time, oriented to situation, CN II-XII grossly intact. ABSENT: altered Results Laboratory Results: WBC 7.9 10^3/uL (4.0-10.5) 04/18/20 04:12 RBC 6.25 10^6/uL (3.72-5.28) H 04/18/20 04:12 Hgb 17.7 g/dL (12.0-15.5) H 04/18/20 04:12 Hct 54.5 % (36.0-47.0) H 04/18/20 04:12 MCV 87 fl (80-97) 04/18/20 04:12 MCH 28.3 pg (27.0-33.4) 04/18/20 04:12 MCHC 32.4 g/dL (32.0-36.0) 04/18/20 04:12 RDW 15.9 % (11.5-14.0) H 04/18/20 04:12 Plt Count 146 10^3/uL (150-450) L 04/18/20 04:12 Lymph % (Auto) 13.1 % (13-45) 04/15/20 05:18 [place] % (Auto) 3.8 % (3-13) 04/15/20 05:18 Eos % (Auto) 0.2 % (0-6) 04/15/20 05:18 Baso % (Auto) 0.2 % (0-2) 04/15/20 05:18 Absolute Neuts (auto) 5.2 10^3/uL (1.7-8.2) 04/15/20 05:18 Absolute Lymphs (auto) 0.8 10^3/uL (0.5-4.7) 04/15/20 05:18 Absolute Monos (auto) 0.2 10^3/uL (0.1-1.4) 04/15/20 05:18 Absolute Eos (auto) 0.0 10^3/uL (0.0-0.6) 04/15/20 05:18 Absolute Basos (auto) 0.0 10^3/uL (0.0-0.2) 04/15/20 05:18 Total Counted 100 04/12/20 13:25 Seg Neutrophils % 82.7 % (42-78) H 04/15/20 05:18 Seg Neuts % (Manual) 74 % (42-78) 04/12/20 13:25 Band Neutrophils % 1 % (3-5) L 04/12/20 13:25 Lymphocytes % (Manual) 15 % (13-45) 04/12/20 13:25 Monocytes % (Manual) 10 % (3-13) 04/12/20 13:25 Eosinophils % (Manual) 0 % (0-6) 04/12/20 13:25 Basophils % (Manual) 0 % (0-2) 04/12/20 13:25 Abs Neuts (Manual) 7.8 10^3/uL (1.7-8.2) 04/12/20 13:25 Abs Lymphs (Manual) 1.6 10^3/uL (0.5-4.7) 04/12/20 13:25 Abs Monocytes (Manual) 1.0 10^3/uL (0.1-1.4) 04/12/20 13:25 Absolute Eos (Manual) 0.0 10^3/uL (0.0-0.6) 04/12/20 13:25 Abs Basophils (Manual) 0.0 10^3/uL (0.0-0.2) 04/12/20 13:25 Toxic Vacuolation PRESENT 04/12/20 13:25 Platelet Comment ADEQUATE 04/12/20 13:25 Polychromasia 1+ 04/12/20 13:25 Anisocytosis 1+ 04/12/20 13:25 Tear Drop Cells SLIGHT 04/12/20 13:25 PT 12.7 SEC (11.4-15.4) 04/12/20 14:20 INR 0.96 04/12/20 14:20 INR (Anticoag Therapy) Cancelled 04/12/20 13:25 APTT 32.1 SEC (23.5-35.8) 04/12/20 14:20 D-Dimer 0.75 ug/mL (0.00-0.50) H 04/12/20 14:20 Carbonic Acid 2.20 mmol/L (1.05-1.35) H 04/16/20 08:20 HCO3/H2CO3 Ratio 19:1 04/16/20 08:20 ABG pH 7.39 (7.35-7.45) 04/16/20 08:20 ABG pCO2 73.1 mmHg (35-45) H* 04/16/20 08:20 ABG pO2 81.8 mmHg (80-100) 04/16/20 08:20 ABG HCO3 43.5 mmol/L (20-24) H 04/16/20 08:20 ABG Total CO2 45.7 mmol/L (21-25) H 04/16/20 08:20 ABG O2 Saturation 95.5 % (94-98) 04/16/20 08:20 ABG Base Excess 13.8 mmol/L 04/16/20 08:20 VBG pH 7.33 (7.30-7.42) 04/15/20 06:44 VBG pCO2 93.7 mmHg (35-63) H* 04/15/20 06:44 VBG HCO3 48.1 mmol/L (20-32) H 04/15/20 06:44 VBG Base Excess 15.8 mmol/L 04/15/20 06:44 FiO2 40% 04/16/20 08:20 Sodium 131.6 mmol/L (137-145) L 04/18/20 06:31 Potassium 4.5 mmol/L (3.6-5.0) 04/18/20 06:31 Chloride 89 mmol/L (98-107) L 04/18/20 06:31 Carbon Dioxide 36 mmol/L (22-30) H 04/18/20 06:31 Anion Gap 7 (5-19) 04/18/20 06:31 BUN 18 mg/dL (7-20) 04/18/20 06:31 Creatinine 0.47 mg/dL (0.52-1.25) L 04/18/20 06:31 Est GFR ( Amer) > 60 (>60) 04/18/20 06:31 Est GFR (Non-Af Amer) Cancelled 04/18/20 04:12 Est GFR (MDRD) Non-Af > 60 (>60) 04/18/20 06:31 Glucose 164 mg/dL (75-110) H 04/18/20 06:31 POC Glucose 137 mg/dL (70-110) H 04/18/20 07:29 Lactic Acid 1.0 mmol/L (0.7-2.1) 04/12/20 16:40 Calcium 9.8 mg/dL (8.4-10.2) 04/18/20 06:31 Magnesium 2.0 mg/dL (1.6-2.3) 04/18/20 06:31 Total Bilirubin 0.8 mg/dL (0.2-1.3) 04/12/20 13:25 Direct Bilirubin 0.0 mg/dL (0.0-0.4) 04/12/20 13:25 Neonat Total Bilirubin Not Reportable 04/12/20 13:25 Neonat Direct Bilirubin Not Reportable 04/12/20 13:25 Neonat Indirect Bili Not Reportable 04/12/20 13:25 AST 28 U/L (14-36) 04/12/20 13:25 ALT 24 U/L (<35) 04/12/20 13:25 Alkaline Phosphatase 76 U/L (38-126) 04/12/20 13:25 Troponin I 0.026 ng/mL 04/12/20 13:25 Total Protein 7.6 g/dL (6.3-8.2) 04/12/20 13:25 Albumin 4.4 g/dL (3.5-5.0) 04/12/20 13:25 EGFR Cancelled 04/18/20 04:12 Urine Color JEB 04/12/20 14:35 Urine Appearance SLIGHTLY-CLOUDY 04/12/20 14:35 Urine pH 5.0 (5.0-9.0) 04/12/20 14:35 Ur Specific [place] 1.024 04/12/20 14:35 Urine Protein >=500 mg/dL (NEGATIVE) H 04/12/20 14:35 Urine Glucose (UA) NEGATIVE mg/dL (NEGATIVE) 04/12/20 14:35 Urine Ketones NEGATIVE mg/dL (NEGATIVE) 04/12/20 14:35 Urine Blood SMALL (NEGATIVE) H 04/12/20 14:35 Urine Nitrite NEGATIVE (NEGATIVE) 04/12/20 14:35 Urine Bilirubin NEGATIVE (NEGATIVE) 04/12/20 14:35 Urine Urobilinogen NEGATIVE mg/dL (<2.0) 04/12/20 14:35 Ur Leukocyte Esterase NEGATIVE (NEGATIVE) 04/12/20 14:35 Urine WBC (Auto) 2 /HPF 04/12/20 14:35 Urine RBC (Auto) 1 /HPF 04/12/20 14:35 U Hyaline Cast (Auto) 19 /LPF 04/12/20 14:35 Urine Bacteria (Auto) TRACE /HPF 04/12/20 14:35 Squamous Epi Cells Auto 4 /HPF 04/12/20 14:35 Urine Mucus (Auto) MANY /LPF 04/12/20 14:35 Urine Ascorbic Acid NEGATIVE (NEGATIVE) 04/12/20 14:35 Anti-Nuclear Antibody Negative (Negative) 04/16/20 04:47 SARS-CoV-2 (PCR) NEGATIVE (NEGATIVE) 04/12/20 13:43 Slides for Path Review SEE COMMENT 04/13/20 05:07 04/12/20 13:25 Troponin I 0.026 Impressions: Chest X-Ray 04/12/20 00:00 IMPRESSION: NO ACUTE RADIOGRAPHIC FINDING IN THE CHEST. Chest CT 04/13/20 00:00 IMPRESSION: NO SIGNIFICANT FINDING ON NON-CONTRASTED CHEST CT. Plan Health Concerns: Chronic undertreated COPD/asthma as a result of the patient being listed as allergic to albuterol. With current aggressive regimen in place patient should slowly improve Plan of Treatment: She will have BiPAP and nebulizer in place as well as oxygen. Multiple new medications at discharge. She will follow-up with Dr. Choi. Goals: Lower PCO2 at least into the 60s. I have patient understand that her ideal pulse ox is 88 to 92%. Better control of diabetes. Time Spent: Greater than 30 Minutes Stroke Is this a Stroke Patient?: No Acute Heart Failure - Is this a Heart Failure Patient?: No
[2020-04-18] MEDS ORDERED: LOSARTAN POTASSIUM 50 MG TABLET PO SCH (10:00)
[2020-04-18] MEDS ORDERED: METHYLPREDNISOLONE INJ 40 MG/1 ML SDV IV SCH (10:00)
[2020-04-18 16:34] VITALS: BP 174/89
== END 2020-04-18 17:08 | disposition home or self-care (01) | DRG 189 ==
LOC: ER 13:12 → EH 19:35 → 5 21:43
PROVIDERS: ADMIT Family Medicine; ATTEND Hospitalist
PROC: 5A09357 Assistance with Respiratory Ventilation, Less than 24 Consecutive Hours, Continuous Positive Airway Pressure (ICD-10-PCS; principal; 2020-04-12)
DX: J96.02 Acute respiratory failure with hypercapnia (principal); J44.1 Chronic obstructive pulmonary disease with (acute) exacerbation; E86.0 Dehydration; E11.65 Type 2 diabetes mellitus with hyperglycemia; D75.1 Secondary polycythemia; E66.01 Morbid (severe) obesity due to excess calories; J96.01 Acute respiratory failure with hypoxia; H04.129 Dry eye syndrome of unspecified lacrimal gland; I10 Essential (primary) hypertension; R05 Cough; K59.00 Constipation, unspecified; K59.01 Slow transit constipation; Z20.828 Contact with and (suspected) exposure to other viral communicable diseases; Z88.8 Allergy status to other drugs, medicaments and biological substances; Z79.84 Long term (current) use of oral hypoglycemic drugs; Z79.899 Other long term (current) drug therapy; Z87.891 Personal history of nicotine dependence; Z86.11 Personal history of tuberculosis; Z68.30 Body mass index [BMI] 30.0-30.9, adult; Z83.3 Family history of diabetes mellitus; Z82.49 Family history of ischemic heart disease and other diseases of the circulatory system
CPT/HCPCS: 36415; 36600; 71045; 71250; 80048; 80053; 81001; 82803; 82962; 83605; 83735; 84484; 85025; 85027; 85379; 85610; 85730; 86038; 87040; 87070; 87205; 87635; 93005; 93010; 94660; 99291; C9803; J0696; J1644; J1815; J2920; J3490; J7030